=== PATIENT | female | born 1990 | race Caucasian/White ===

== ENCOUNTER 2018-09-20 00:53 | Emergency (ER) | payer BC, MEDICAID ==
[~2018-09-20] VITALS: Ht 165.1 cm; Wt 72.7 kg
[~2018-09-20 00:53] MED LIST: NO HOME MEDS
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
[2018-09-20] MEDS ORDERED: QUET50TA22 PO (01:31)
[2018-09-20] MEDS ORDERED: TOPI50TA24 PO (01:31)
[2018-09-20] MEDS ORDERED: ZIPR20CA12 PO (01:31)
[2018-09-20] MEDS ORDERED: ZIPR80CA10 PO (01:31)
[2018-09-20] MEDS ORDERED: ALBUTEROL (01:31)
[2018-09-20 01:32] LABS: BASOPHILS % (AUTO) 0.5 % (0-1); EOSINOPHILS # (AUTO) 0.1 X10'3 (0-0.9); EOSINOPHILS % (AUTO) 1.4 % (0-6); HEMATOCRIT 42.1 % (35.0-45.0); HEMOGLOBIN 14.4 g/dl (12.0-16.0); LYMPHOCYTES # (AUTO) 2.6 X10'3 (1.1-4.8); LYMPHOCYTES % (AUTO) 30.4 % (21-51); MEAN CORPUSCULAR HEMOGLOBIN 31.3 PG (27.0-31.0); MEAN CORPUSCULAR HGB CONC 34.1 g/dL (33.0-36.5); MEAN CORPUSCULAR VOLUME 91.8 FL (78-98); MEAN PLATELET VOLUME 7.6 FL (7.4-10.4); MONOCYTES # (AUTO) 0.6 X10'3 (0-0.9); MONOCYTES % (AUTO) 7.3 % (2-12); NEUTROPHILS # (AUTO) 5.1 X10'3 (1.8-7.7); NEUTROPHILS % (AUTO) 60.4 % (42-75); PLATELET COUNT 281 X10'3 (140-440); RED BLOOD COUNT 4.59 X10'6 (4.20-5.60); RED CELL DISTRIBUTION WIDTH 12.4 % (11.5-14.5); WHITE BLOOD COUNT 8.5 X10'3 (4.5-11.0)
[2018-09-20 01:45] LABS: PARTIAL THROMBOPLASTIN TIME 30 SECONDS (22-32)
[2018-09-20 01:47] LABS: ALANINE AMINOTRANSFERASE 22 U/L (12-78); ALBUMIN 4.4 G/DL (3.4-5.0); ALBUMIN/GLOBULIN RATIO 1.3 (1.1-1.5); ALKALINE PHOSPHATASE 74 IU/L (46-116); ANION GAP 11 (8-16); ASPARTATE AMINO TRANSFERASE 12 U/L (10-37); BILIRUBIN,TOTAL 0.3 MG/DL (0.1-1.0); BLOOD UREA NITROGEN 16 MG/DL (7-18); BUN/CREATININE RATIO 15.7 (6.6-38.0); CALCIUM 9.5 MG/DL (8.5-10.1); CHLORIDE 108 MMOL/L (99-107); CREATININE 1.02 MG/DL (0.40-0.90); GLUCOSE 104 MG/DL (70-104); POTASSIUM 3.9 MMOL/L (3.5-5.1); SODIUM 140 MMOL/L (135-145); TOTAL CARBON DIOXIDE 21.5 MMOL/L (24-32); TOTAL PROTEIN 7.9 G/DL (6.4-8.2); eGFR 64 ML/MIN
--- NOTE | 2018-09-20 01:49 | NUR ---
Pt resting quietly, respirations normal, no s/s of distress.
[2018-09-20 01:56] LABS: LIPASE 134 U/L (73-393)
[2018-09-20 02:08] LABS: ETHANOL < 0.010 GM/DL (0.0-0.010)
[2018-09-20] MEDS ORDERED: ALBU8HFA PO (03:11)
[2018-09-20] MEDS ORDERED: albuterol 2.5 MG/3 ML nebule NEB PRN (03:15)
--- NOTE | 2018-09-20 03:16 | NUR ---
Pt up to bathroom.
[2018-09-20 03:28] LABS: CLARITY,URINE CLEAR (Clear); COLOR,URINE YELLOW (Yellow); GLUCOSE, URINE NEGATIVE (Neg); KETONES,URINE NEGATIVE (Neg); LEUKOCYTE ESTERASE ,URINE MODERATE (Neg); NITRITES, URINE NEGATIVE (Neg); OCCULT BLOOD,URINE NEGATIVE (Neg); PROTEIN,URINE NEGATIVE (Neg); URINE HCG NEGATIVE (NEG); UROBILINOGEN,URINE 0.2 E.U/dL (0.2-1.0)
[2018-09-20 03:33] LABS: UA COLLECTION TYPE CLN CATCH MIDSTREAM
[2018-09-20 03:35] LABS: BACTERIA,URINE NONE SEEN /HPF (Neg); MUCUS STRANDS NONE SEEN /LPF (Neg); RBC,URINE NONE SEEN /HPF (0-2); SQUAMOUS EPITHELIAL CELL,UR FEW /LPF (FEW); WBC,URINE 20-30 /HPF (0-4)
[2018-09-20 03:40] LABS: URINE AMPHETAMINE SCREEN NEGATIVE (Neg); URINE BARBITUATE SCREEN NEGATIVE (Neg); URINE BENZODIAZEPINES SCREEN NEGATIVE (Neg); URINE CANNABINOID SCREEN NEGATIVE (Neg); URINE COCAINE SCREEN NEGATIVE (Neg); URINE METHADONE SCREEN NEGATIVE (Neg); URINE OPIATE SCREEN NEGATIVE (Neg); URINE PHENCYCLIDINE SCREEN NEGATIVE (Neg)
--- NOTE | 2018-09-20 04:30 | NUR ---
Pt resting quietly, respirations normal, no s/s of distress.
--- NOTE | 2018-09-20 05:38 | NUR ---
Pt resting quietly, respirations normal, no s/s of distress.
[2018-09-20] MEDS ORDERED: cephalexin 500mg capsule PO ONE (06:50)
[2018-09-20] MEDS ORDERED: CEPH250T PO (07:00)
[2018-09-20] MEDS ORDERED: ziprasidone 20mg capsule PO SCH (08:00)
[2018-09-20] MEDS ORDERED: ZIPRASIDONE HCL 80 MG PO SCH (08:00)
[2018-09-20] MEDS: lactobacillus rhamnosus 10,000 MMU CELLS/CAPSULE PO SCH ×2 (08:25→20:28)
[2018-09-20] MEDS: cephalexin 250mg capsule PO SCH ×2 (08:26→20:28)
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
[2018-09-20] MEDS ORDERED: ziprasidone 20mg capsule PO ONE (11:50)
--- NOTE | 2018-09-20 12:21 | NUR ---
PT IS SITTING IN BED, RESPIRATIONS EVEN AND UNLABORED. NO DISTRESS NOTED AT THIS TIME.
[2018-09-20] MEDS: ziprasidone 20mg capsule PO SCH (20:28)
[2018-09-20] MEDS ORDERED: topiramate 100mg tablet PO SCH (21:00)
[2018-09-20] MEDS ORDERED: QUEtiapine 25mg tablet PO SCH (21:00)
[2018-09-21 05:40] VITALS: BP 105/56
--- NOTE | 2018-09-21 07:24 | NUR ---
Patient sleeping on right side. No restlessness/distress observed. Continue to monitor.
[2018-09-21] MEDS: lactobacillus rhamnosus 10,000 MMU CELLS/CAPSULE PO SCH (07:53)
[2018-09-21] MEDS: cephalexin 250mg capsule PO SCH (07:54)
[2018-09-21] MEDS: ziprasidone 20mg capsule PO SCH (07:54)
--- NOTE | 2018-09-21 08:15 | NUR ---
Patient eating breakfast. No distress observed. Patient took her medication. Patient quiet and only answering yes and no questions at this time. Continue to monitor.
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
--- NOTE | 2018-09-21 11:10 | NUR ---
Mother visiting with patient. No distress observed. Patient and mom chatting. Continue to monitor.
[2018-09-22] MEDS ORDERED: TOP100T PO (10:40)
[2018-09-22] MEDS ORDERED: QUET50TA22 PO (10:45)
== END 2018-09-21 12:00 | disposition home or self-care (01) ==
LOC: ER 00:54
DX: F29 Unspecified psychosis not due to a substance or known physiological condition (principal); N39.0 Urinary tract infection, site not specified; F41.9 Anxiety disorder, unspecified; R61 Generalized hyperhidrosis; R79.1 Abnormal coagulation profile; J45.909 Unspecified asthma, uncomplicated; Z79.2 Long term (current) use of antibiotics; Z79.899 Other long term (current) drug therapy
CPT/HCPCS: 36415; 80053; 80305; 80320; 81001; 81025; 83690; 83735; 84443; 85025; 85610; 85730; 87088; 99285

== ENCOUNTER 2018-09-21 10:22 | Inpatient (IN) | payer BC, MEDICAID ==
[~2018-09-21] VITALS: Ht 165.1 cm; Wt 69.9 kg
[~2018-09-21 10:22] MED LIST changes: +ALBU8HFA PO; +CEPH250T PO; +QUET50TA22 PO; +TOPI50TA24 PO; +ZIPR20CA12 PO
[2018-09-21] MEDS ORDERED: mag hydrox/Alum hydrox/simeth 30ml oral suspension PO PRN (10:50)
[2018-09-21] MEDS ORDERED: magnesium hydroxide 30ml (MOM) UD suspension PO PRN (10:50)
[2018-09-21] MEDS ORDERED: tuberculin, purif. prot. deriv. 5 units/0.1ml ID ONE (10:50)
[2018-09-21] MEDS ORDERED: acetaminophen 325mg tablet PO PRN ×2 (10:50)
[2018-09-21] MEDS ORDERED: albuterol 2.5 MG/3 ML nebule NEB PRN (12:00)
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
--- NOTE | 2018-09-21 12:05 | NUR ---
Pt.'s vitals upon admission are BP 106/78, HR 81, Temp 98.2, SPO2 95%, Resp 16. Pain 0/10
[2018-09-21] MEDS: cephalexin 500mg capsule PO SCH ×2 (12:14→20:47)
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
[2018-09-21] MEDS: ALBUTEROL INHALER TP PRN ×2 (15:25→21:44)
--- NOTE | 2018-09-21 16:57 | NUR ---
Pt. refused PPD
[2018-09-21 19:13] VITALS: BP 127/83
[2018-09-21 19:48] VITALS: BP 127/83
[2018-09-21] MEDS: ziprasidone 20mg capsule PO SCH (20:45)
[2018-09-21] MEDS: QUEtiapine 25mg tablet PO SCH (20:47)
[2018-09-21] MEDS: topiramate 100mg tablet PO SCH (20:48)
[2018-09-21] MEDS: lactobacillus rhamnosus 10,000 MMU CELLS/CAPSULE PO SCH (20:48)
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
[2018-09-22 07:50] LABS: HEMOGLOBIN A1C 5.3 % (4.5-6.2)
[2018-09-22] MEDS: cephalexin 500mg capsule PO SCH ×2 (07:57→20:57)
[2018-09-22] MEDS: lactobacillus rhamnosus 10,000 MMU CELLS/CAPSULE PO SCH ×2 (07:57→20:57)
[2018-09-22] MEDS: ziprasidone 20mg capsule PO SCH ×2 (07:57→20:57)
[2018-09-22 08:00] VITALS: BP 111/63
[2018-09-22 08:11] LABS: CHOLESTEROL 114 MG/DL (0-200); HDL CHOLESTEROL 56 MG/DL (35-60); LDL CHOLESTEROL 48 MG/DL (50-100); TRIGLYCERIDES 64 MG/DL (20-135)
[2018-09-22] MEDS ORDERED: TOP100T PO (10:40)
[2018-09-22] MEDS ORDERED: QUET50TA22 PO (10:45)
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
[2018-09-22 20:00] VITALS: BP 126/66
[2018-09-22] MEDS: topiramate 100mg tablet PO SCH (20:57)
[2018-09-22] MEDS: QUEtiapine 25mg tablet PO SCH (20:57)
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
[2018-09-23] MEDS: hydrOXYzine 25 MG tablet PO PRN ×2 (00:19→22:18)
[2018-09-23] MEDS: ALBUTEROL INHALER TP PRN ×2 (00:24→22:18)
[2018-09-23 08:00] VITALS: BP 113/52
[2018-09-23] MEDS: lactobacillus rhamnosus 10,000 MMU CELLS/CAPSULE PO SCH ×2 (08:43→20:04)
[2018-09-23] MEDS: ziprasidone 20mg capsule PO SCH ×2 (08:43→20:09)
[2018-09-23] MEDS: cephalexin 500mg capsule PO SCH ×2 (08:43→20:04)
[2018-09-23] MEDS ORDERED: risperiDONE 2mg tablet PO ONE (12:00)
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
[2018-09-23 19:50] VITALS: BP 115/59
[2018-09-23] MEDS: topiramate 100mg tablet PO SCH (20:04)
[2018-09-23] MEDS: risperiDONE 2mg tablet PO SCH (20:05)
[2018-09-23] MEDS: QUEtiapine 25mg tablet PO SCH (20:06)
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
[2018-09-24 07:40] VITALS: BP 107/50
[2018-09-24] MEDS: cephalexin 500mg capsule PO SCH ×2 (07:47→21:12)
[2018-09-24] MEDS: lactobacillus rhamnosus 10,000 MMU CELLS/CAPSULE PO SCH ×2 (07:47→21:13)
[2018-09-24] MEDS: risperiDONE 2mg tablet PO SCH ×2 (07:47→21:13)
[2018-09-24] MEDS: ziprasidone 20mg capsule PO SCH ×2 (07:47→21:12)
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
[2018-09-24 20:00] VITALS: BP 125/69
[2018-09-24] MEDS: ALBUTEROL INHALER TP PRN (21:11)
[2018-09-24] MEDS: QUEtiapine 25mg tablet PO SCH (21:12)
[2018-09-24] MEDS: topiramate 100mg tablet PO SCH (21:12)
[2018-09-24] MEDS: hydrOXYzine 25 MG tablet PO PRN (21:48)
--- NOTE | 2018-09-25 01:00 | NUR ---
Pt restless and unable to fall asleep. Called Dr. Murillo - received order for Temazepam 30mg once. Administered with effect.
[2018-09-25] MEDS ORDERED: temazepam 15mg capsule PO ONE (01:08)
[2018-09-25] MEDS: LORazepam 1 MG tablet PO PRN ×2 (01:14→23:20)
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
[2018-09-25 07:39] VITALS: BP 112/65
[2018-09-25] MEDS: lactobacillus rhamnosus 10,000 MMU CELLS/CAPSULE PO SCH ×2 (09:02→20:45)
[2018-09-25] MEDS: risperiDONE 2mg tablet PO SCH (09:02)
[2018-09-25] MEDS: ziprasidone 20mg capsule PO SCH ×2 (09:02→20:45)
[2018-09-25] MEDS: cephalexin 500mg capsule PO SCH ×2 (09:02→20:46)
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
[2018-09-25 19:21] VITALS: BP 115/66
[2018-09-25] MEDS ORDERED: polyethylene glycol 3350 17gm powd pack PO PRN (20:00)
[2018-09-25] MEDS: topiramate 100mg tablet PO SCH (20:46)
[2018-09-25] MEDS ORDERED: risperiDONE 0.5mg tablet PO SCH (21:00)
[2018-09-25] MEDS ORDERED: quetiapine 100mg tablet PO SCH (21:00)
[2018-09-25] MEDS ORDERED: temazepam 15mg capsule PO PRN (23:30)
[2018-09-25] MEDS: ALBUTEROL INHALER TP PRN (23:43)
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
[2018-09-26 07:39] VITALS: BP 102/57
[2018-09-26] MEDS: cephalexin 500mg capsule PO SCH ×2 (08:06→21:02)
[2018-09-26] MEDS: ziprasidone 20mg capsule PO SCH (08:06)
[2018-09-26] MEDS: risperiDONE 0.5mg tablet PO SCH ×2 (08:06→21:02)
[2018-09-26] MEDS: lactobacillus rhamnosus 10,000 MMU CELLS/CAPSULE PO SCH ×2 (08:06→21:02)
--- NOTE | 2018-09-26 14:46 | NUR ---
Eating well, meeting nutrition needs. Patient documented with constipation, no BM for 5 days since 09/21, noted that she is receiving milk of magnsouleymane ponce, last given 09/23. Called unit to discuss patient's constipation, no answer, will attempt again. Patient my need additional bowel care if continues with constipation. Recommend: 1. continue regular diet 2. weekly wts Addendum: 09/26/18 at [address] Amended: Links added.
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
[2018-09-26 20:08] VITALS: BP 107/67
[2018-09-26] MEDS ORDERED: LORazepam 1 MG tablet PO PRN ×2 (20:50)
[2018-09-26] MEDS: topiramate 100mg tablet PO SCH (21:03)
[2018-09-26] MEDS: quetiapine 100mg tablet PO SCH (21:03)
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
[2018-09-27 07:28] VITALS: BP 107/66
[2018-09-27] MEDS: risperiDONE 0.5mg tablet PO SCH ×2 (07:53→20:43)
[2018-09-27] MEDS: ziprasidone 20mg capsule PO SCH ×2 (07:53→20:43)
[2018-09-27] MEDS: cephalexin 500mg capsule PO SCH (07:53)
[2018-09-27] MEDS: lactobacillus rhamnosus 10,000 MMU CELLS/CAPSULE PO SCH ×2 (07:54→20:42)
--- NOTE | 2018-09-27 12:26 | NUR ---
F/u: Pt BM 09/26 and constipation currently resolving receiving bowel care per RN. No nutrition concerns at this time. Recommend: 1. continue regular diet 2. weekly wts Addendum: 09/27/18 at [address] Amended: Links added.
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
[2018-09-27 19:33] VITALS: BP 119/80
[2018-09-27] MEDS: quetiapine 100mg tablet PO SCH ×2 (20:43→22:21)
[2018-09-27] MEDS: topiramate 100mg tablet PO SCH (20:43)
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
[2018-09-28 07:52] VITALS: BP 116/58
[2018-09-28] MEDS: lactobacillus rhamnosus 10,000 MMU CELLS/CAPSULE PO SCH ×2 (08:15→20:27)
[2018-09-28] MEDS: ziprasidone 20mg capsule PO SCH (08:15)
[2018-09-28] MEDS: risperiDONE 0.5mg tablet PO SCH ×2 (08:15→20:27)
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
[2018-09-28 20:13] VITALS: BP 105/64
[2018-09-28] MEDS: topiramate 100mg tablet PO SCH (20:27)
[2018-09-28] MEDS: quetiapine 100mg tablet PO SCH (20:27)
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
[2018-09-29] MEDS: risperiDONE 0.5mg tablet PO SCH ×2 (07:37→20:26)
[2018-09-29] MEDS: lactobacillus rhamnosus 10,000 MMU CELLS/CAPSULE PO SCH ×2 (07:37→20:26)
[2018-09-29] MEDS ORDERED: ziprasidone 20mg capsule PO SCH ×2 (08:00→20:00)
[2018-09-29 08:46] VITALS: BP 114/50
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
[2018-09-29 19:41] VITALS: BP 113/68
[2018-09-29] MEDS: quetiapine 100mg tablet PO SCH (20:26)
[2018-09-29] MEDS: topiramate 100mg tablet PO SCH (20:26)
[2018-09-29] MEDS: temazepam 15mg capsule PO PRN (21:57)
[2018-09-29] MEDS: ALBUTEROL INHALER TP PRN (21:57)
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
[2018-09-30 08:00] VITALS: BP 118/64
[2018-09-30] MEDS: risperiDONE 0.5mg tablet PO SCH ×2 (08:12→20:20)
[2018-09-30] MEDS: lactobacillus rhamnosus 10,000 MMU CELLS/CAPSULE PO SCH ×2 (08:12→20:19)
[2018-09-30] MEDS: ziprasidone 20mg capsule PO SCH (08:12)
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
[2018-09-30 19:47] VITALS: BP 133/70
[2018-09-30] MEDS: quetiapine 100mg tablet PO SCH (20:18)
[2018-09-30] MEDS: topiramate 100mg tablet PO SCH (20:19)
[2018-09-30] MEDS ORDERED: ondansetron 4mg rapidly disintigrating tab PO ONE (21:00)
[2018-09-30] MEDS: loperamide 2mg capsule PO PRN (21:24)
[2018-09-30] MEDS: temazepam 15mg capsule PO PRN (22:44)
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
[2018-10-01 07:00] VITALS: BP 102/51
[2018-10-01] MEDS ORDERED: risperiDONE 0.5mg tablet PO SCH (08:00)
[2018-10-01] MEDS: ziprasidone 20mg capsule PO SCH (08:50)
[2018-10-01] MEDS: lactobacillus rhamnosus 10,000 MMU CELLS/CAPSULE PO SCH ×2 (08:51→21:32)
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
[2018-10-01 20:00] VITALS: BP 105/72
[2018-10-01] MEDS: topiramate 100mg tablet PO SCH (21:32)
[2018-10-01] MEDS: quetiapine 100mg tablet PO SCH (21:32)
[2018-10-01] MEDS: risperiDONE 0.5mg tablet PO SCH (21:32)
[2018-10-01] MEDS: temazepam 15mg capsule PO PRN (21:38)
[2018-10-01] MEDS: loperamide 2mg capsule PO PRN (21:38)
--- NOTE | 2018-10-02 02:00 | NUR ---
Nursing Note: Pt. awoke with another episode of vomiting as she had, had the night before. She requested to take a shower and was able to do so independently. V/S obtained following shower and were WNL. Pt. denies any further nausea and reports fatigue, she requests tea and returns to bed. Will continue to monitor.
[2018-10-02 02:25] VITALS: BP 126/74
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
[2018-10-02 08:00] VITALS: BP 102/52
[2018-10-02] MEDS: lactobacillus rhamnosus 10,000 MMU CELLS/CAPSULE PO SCH ×2 (08:29→20:30)
[2018-10-02] MEDS: risperiDONE 0.5mg tablet PO SCH ×2 (08:29→20:30)
[2018-10-02] MEDS: ziprasidone 20mg capsule PO SCH (08:30)
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
[2018-10-02 19:49] VITALS: BP 102/69
[2018-10-02] MEDS: topiramate 100mg tablet PO SCH (20:30)
[2018-10-02] MEDS: quetiapine 100mg tablet PO SCH (20:30)
[2018-10-02] MEDS: temazepam 15mg capsule PO PRN (22:25)
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
[2018-10-03 07:33] VITALS: BP 94/62
[2018-10-03] MEDS: lactobacillus rhamnosus 10,000 MMU CELLS/CAPSULE PO SCH ×2 (08:21→20:29)
[2018-10-03] MEDS: risperiDONE 0.5mg tablet PO SCH ×2 (08:21→20:30)
[2018-10-03] MEDS: topiramate 25mg tablet PO SCH (08:22)
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
[2018-10-03 19:54] VITALS: BP 106/56
[2018-10-03] MEDS: quetiapine 100mg tablet PO SCH (20:30)
[2018-10-03] MEDS: topiramate 100mg tablet PO SCH (20:30)
[2018-10-03] MEDS: temazepam 15mg capsule PO PRN (22:20)
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
[2018-10-04] MEDS: quetiapine 100mg tablet PO SCH (02:42)
[2018-10-04 07:34] VITALS: BP 99/54
[2018-10-04] MEDS: topiramate 25mg tablet PO SCH (08:22)
[2018-10-04] MEDS: lactobacillus rhamnosus 10,000 MMU CELLS/CAPSULE PO SCH (08:22)
[2018-10-04] MEDS: risperiDONE 0.5mg tablet PO SCH (08:23)
[2018-10-04] MEDS ORDERED: RISP0.5T3 PO ×2 (14:03)
[2018-10-04] MEDS ORDERED: QUET100T33 PO (14:03)
[2018-10-04] MEDS ORDERED: TOP25T PO (14:03)
[2018-10-04] MEDS ORDERED: TOP100T PO (14:03)
--- NOTE | 2018-10-04 14:35 | NUR ---
DISCHARGE NOTE Pt discharged home with her mother after a medication adjustment. All personal belongings inventoried and signed off w/AUGUST Aggarwal. Pt declined smoking cessation. Resources provided for community assistance. Pt denies SI/HI. Prescriptions handed to her and education provided for her to go to the pharmacy and to get her Rx's filled on her way home. Pt left smiling.
== END 2018-10-04 14:35 | disposition home or self-care (01) | DRG 885 ==
LOC: ADULT MH 10:22
PROVIDERS: ADMIT Psychiatry & Neurology Psychiatry; ATTEND Psychiatry & Neurology Psychiatry
DX: F29 Unspecified psychosis not due to a substance or known physiological condition (principal); N39.0 Urinary tract infection, site not specified; F84.5 Asperger's syndrome; J45.909 Unspecified asthma, uncomplicated; Z91.19 Patient's noncompliance with other medical treatment and regimen; Z79.899 Other long term (current) drug therapy
CPT/HCPCS: 36415; 80061; 83036; 87081; 94640; 94760; 99285; Z7610

== ENCOUNTER 2018-11-10 13:32 | Emergency (ER) | payer BC, MEDICAID ==
[~2018-11-10] VITALS: Ht 162.6 cm; Wt 59.0 kg
[~2018-11-10 13:32] MED LIST changes: -CEPH250T PO; -NO HOME MEDS; +QUET100T33 PO; -QUET50TA22 PO; +RISP0.5T3 PO; +TOP100T PO; +TOP25T PO; -TOPI50TA24 PO; -ZIPR20CA12 PO
[2018-11-10 14:08] LABS: BASOPHILS % (AUTO) 0.5 % (0-1); EOSINOPHILS # (AUTO) 0.2 X10'3 (0-0.9); EOSINOPHILS % (AUTO) 2.8 % (0-6); HEMATOCRIT 40.6 % (35.0-45.0); HEMOGLOBIN 13.9 g/dl (12.0-16.0); LYMPHOCYTES # (AUTO) 1.7 X10'3 (1.1-4.8); LYMPHOCYTES % (AUTO) 29.8 % (21-51); MEAN CORPUSCULAR HEMOGLOBIN 31.8 PG (27.0-31.0); MEAN CORPUSCULAR HGB CONC 34.3 g/dL (33.0-36.5); MEAN CORPUSCULAR VOLUME 92.7 FL (78-98); MEAN PLATELET VOLUME 7.6 FL (7.4-10.4); MONOCYTES # (AUTO) 0.5 X10'3 (0-0.9); NEUTROPHILS # (AUTO) 3.4 X10'3 (1.8-7.7); NEUTROPHILS % (AUTO) 58.9 % (42-75); PLATELET COUNT 257 X10'3 (140-440); RED BLOOD COUNT 4.38 X10'6 (4.20-5.60); RED CELL DISTRIBUTION WIDTH 12.4 % (11.5-14.5); WHITE BLOOD COUNT 5.8 X10'3 (4.5-11.0)
[2018-11-10 14:14] LABS: ALANINE AMINOTRANSFERASE 24 U/L (12-78); ALBUMIN 4.2 G/DL (3.4-5.0); ALBUMIN/GLOBULIN RATIO 1.2 (1.1-1.5); ALKALINE PHOSPHATASE 82 IU/L (46-116); ANION GAP 13 (8-16); ASPARTATE AMINO TRANSFERASE 15 U/L (10-37); BILIRUBIN,TOTAL 0.4 MG/DL (0.1-1.0); BLOOD UREA NITROGEN 9 MG/DL (7-18); BUN/CREATININE RATIO 9.6 (6.6-38.0); CALCIUM 9.1 MG/DL (8.5-10.1); CHLORIDE 106 MMOL/L (99-107); CREATININE 0.94 MG/DL (0.40-0.90); ETHANOL < 0.010 GM/DL (0.0-0.010); GLUCOSE 106 MG/DL (70-104); POTASSIUM 3.7 MMOL/L (3.5-5.1); SODIUM 142 MMOL/L (135-145); TOTAL CARBON DIOXIDE 22.8 MMOL/L (24-32); TOTAL PROTEIN 7.6 G/DL (6.4-8.2); eGFR 70 ML/MIN
--- NOTE | 2018-11-10 14:31 | NUR ---
called and gave report to overflow.
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
[2018-11-10 15:29] LABS: URINE HCG NEGATIVE (NEG)
[2018-11-10 15:35] LABS: URINE AMPHETAMINE SCREEN NEGATIVE (Neg); URINE BARBITUATE SCREEN NEGATIVE (Neg); URINE BENZODIAZEPINES SCREEN NEGATIVE (Neg); URINE CANNABINOID SCREEN NEGATIVE (Neg); URINE COCAINE SCREEN NEGATIVE (Neg); URINE METHADONE SCREEN NEGATIVE (Neg); URINE OPIATE SCREEN NEGATIVE (Neg); URINE PHENCYCLIDINE SCREEN NEGATIVE (Neg)
[2018-11-10] MEDS ORDERED: QUET-1 PO (15:35)
[2018-11-10] MEDS ORDERED: TOPI25TA15 PO (15:40)
[2018-11-10] MEDS ORDERED: RISP2TAB3 PO ×2 (15:40→15:44)
[2018-11-10] MEDS ORDERED: TOPI50TA PO (15:40)
[2018-11-10] MEDS ORDERED: TOP100T PO (15:40)
[2018-11-10] MEDS ORDERED: RISP1TAB3 PO (15:40)
[2018-11-10] MEDS ORDERED: albuterol 2.5 MG/3 ML nebule NEB PRN (16:10)
[2018-11-10] MEDS ORDERED: RISP1TAB13 PO (16:59)
--- NOTE | 2018-11-10 17:00 | NUR ---
Pt resting quietly in bed. Pt called out once because she was hungry and once because she was cold. As soon as staff addressed concerns, pt laying quietly in bed.
--- NOTE | 2018-11-10 19:03 | NUR ---
One to one with the patient to assess severity of depressive symptoms and self harm risk. She is resting quietly on her bed after eating approximately 70% of her dinner. During the evening assessment her speech was monotone and her affect was very flat. She gave minimal eye contact. She stated that she has been feeling very depressed. When asked why she was here she stated, "My parents said I was hurting them but they were hurting me...They don't like me" She appears at times to be internally preoccupied. When asked if she heard voices she stated that she 3 different voices and they tell her "That my parents hate me" She stated that she saw things that other people did not see but when asked to give an example she only stated, "just weird things. I don't really remember" She reports her energy level is low. She stated that she does not want to live with her family but wants to be and have a family. When asked about suicidal thinking she stated that at times she feels she should not be "around in life anymore"
[2018-11-10] MEDS: quetiapine 100mg tablet PO SCH (20:06)
[2018-11-10] MEDS: topiramate 100mg tablet PO SCH (20:06)
[2018-11-10] MEDS: risperiDONE 0.5mg tablet PO SCH (20:06)
[2018-11-10] MEDS: risperiDONE 2mg tablet PO SCH (20:06)
--- NOTE | 2018-11-10 20:27 | NUR ---
The patient is actively responding to internal stimuli and laughing and at other times is distress and moaining loudly
[2018-11-10] MEDS ORDERED: risperiDONE 2mg tablet PO SCH (21:00)
--- NOTE | 2018-11-10 21:27 | NUR ---
The patient now appears to be asleep
--- NOTE | 2018-11-10 23:43 | NUR ---
The patient is awake off and on. She continues to appear to be distracted by internal stimuli. She declines offer of medication. She did accept a snack
--- NOTE | 2018-11-11 03:00 | NUR ---
The patient appears to be sleeping
--- NOTE | 2018-11-11 05:02 | NUR ---
The patient appears to be sleeping
--- NOTE | 2018-11-11 07:00 | NUR ---
Received pt asleep in bed without distress noted.
[2018-11-11] MEDS ORDERED: risperiDONE 0.5mg tablet PO SCH (08:00)
[2018-11-11] MEDS ORDERED: topiramate 25mg tablet PO SCH (08:00)
--- NOTE | 2018-11-11 09:00 | NUR ---
Pt awoke for breakfast and she took am meds without incident. Pt affect remains flat for the most part, but she did smile once which was a change from yesterday when she didn't smile at all.
--- NOTE | 2018-11-11 11:00 | NUR ---
Pt has been sitting up in bed coloring in a coloring book and looking at a magazine and tearing out pictures. Mom just arrived to visit.
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
--- NOTE | 2018-11-11 15:00 | NUR ---
pt resting quietly in bed drawing in coloring book.
--- NOTE | 2018-11-11 16:57 | NUR ---
Pt sitting up in bed quietly looking at the ground. Pt offers up no complaints.
[2018-11-11] MEDS: topiramate 100mg tablet PO SCH (20:49)
[2018-11-11] MEDS: risperiDONE 2mg tablet PO SCH (20:50)
[2018-11-11] MEDS: quetiapine 100mg tablet PO SCH (20:51)
[2018-11-11] MEDS: risperiDONE 0.5mg tablet PO SCH (20:51)
--- NOTE | 2018-11-11 20:54 | NUR ---
relieving RN for break, pt is resting quietly, calm and cooperative, compliant with taking meds, asking for breathing tx, RT paged
[2018-11-11 23:22] VITALS: BP 114/71
== END 2018-11-11 23:26 ==
LOC: ER 13:34
DX: R45.850 Homicidal ideations (principal); J45.909 Unspecified asthma, uncomplicated; F29 Unspecified psychosis not due to a substance or known physiological condition; R06.03 Acute respiratory distress; Z79.899 Other long term (current) drug therapy
CPT/HCPCS: 36415; 80053; 80305; 80320; 81025; 85025; 94640; 99285

== ENCOUNTER 2018-11-11 19:10 | Inpatient (IN) | payer BC, MEDICAID ==
[~2018-11-11] VITALS: Ht 162.6 cm; Wt 79.1 kg
[~2018-11-11 19:10] MED LIST changes: +QUET-1 PO; -QUET100T33 PO; -RISP0.5T3 PO; +RISP1TAB13 PO; +RISP1TAB3 PO; -TOP25T PO; +TOPI25TA15 PO
[2018-11-11 23:29] VITALS: BP 111/78
[2018-11-11] MEDS ORDERED: magnesium hydroxide 30ml (MOM) UD suspension PO PRN (23:35)
[2018-11-11] MEDS ORDERED: mag hydrox/Alum hydrox/simeth 30ml oral suspension PO PRN (23:35)
[2018-11-11] MEDS ORDERED: acetaminophen 325mg tablet PO PRN (23:35)
[2018-11-11] MEDS ORDERED: loperamide 2mg capsule PO PRN (23:40)
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
[2018-11-12 07:00] VITALS: BP 106/71
[2018-11-12] MEDS: topiramate 25mg tablet PO SCH (07:34)
[2018-11-12] MEDS: risperiDONE 0.5mg tablet PO SCH ×2 (07:34→20:34)
[2018-11-12 08:36] LABS: CHOL/HDL RATIO 2.2 (0.00-4.99); CHOLESTEROL 122 MG/DL (0-200); HDL CHOLESTEROL 55 MG/DL (35-60); LDL CHOLESTEROL 54 MG/DL (50-100); TRIGLYCERIDES 114 MG/DL (20-135)
[2018-11-12 08:37] LABS: HEMOGLOBIN A1C 4.9 % (4.5-6.2)
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
[2018-11-12 19:00] VITALS: BP 114/73
[2018-11-12] MEDS: LORazepam 1 MG tablet PO PRN (19:00)
[2018-11-12] MEDS: topiramate 100mg tablet PO SCH (20:34)
[2018-11-12] MEDS: quetiapine 100mg tablet PO SCH (20:35)
[2018-11-12] MEDS: risperiDONE 2mg tablet PO SCH (20:35)
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
[2018-11-13] MEDS: risperiDONE 0.5mg tablet PO SCH ×2 (07:56→20:18)
[2018-11-13] MEDS: topiramate 25mg tablet PO SCH (07:56)
[2018-11-13 08:00] VITALS: BP 94/60
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
[2018-11-13 20:08] VITALS: BP 118/78
[2018-11-13] MEDS: LORazepam 1 MG tablet PO PRN (20:18)
[2018-11-13] MEDS: topiramate 100mg tablet PO SCH (20:18)
[2018-11-13] MEDS: risperiDONE 2mg tablet PO SCH (20:18)
[2018-11-13] MEDS: quetiapine 100mg tablet PO SCH (20:18)
[2018-11-14 07:47] VITALS: BP 105/57
[2018-11-14] MEDS: topiramate 25mg tablet PO SCH (08:15)
[2018-11-14] MEDS: risperiDONE 0.5mg tablet PO SCH ×2 (08:15→20:13)
[2018-11-14] MEDS: albuterol 2.5 MG/3 ML nebule NEB PRN (11:22)
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
[2018-11-14 19:29] VITALS: BP 116/70
[2018-11-14] MEDS: risperiDONE 2mg tablet PO SCH (20:13)
[2018-11-14] MEDS: LORazepam 1 MG tablet PO PRN (20:13)
[2018-11-14] MEDS: topiramate 100mg tablet PO SCH (20:13)
[2018-11-14] MEDS: quetiapine 100mg tablet PO SCH (20:13)
[2018-11-14] MEDS: acetaminophen 325mg tablet PO PRN (20:14)
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
[2018-11-15 07:30] VITALS: BP 94/51
[2018-11-15] MEDS: topiramate 25mg tablet PO SCH (08:23)
[2018-11-15] MEDS: risperiDONE 0.5mg tablet PO SCH ×2 (08:23→20:27)
[2018-11-15] MEDS: acetaminophen 325mg tablet PO PRN (08:48)
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
[2018-11-15 19:32] VITALS: BP 120/66
[2018-11-15] MEDS: topiramate 100mg tablet PO SCH (20:26)
[2018-11-15] MEDS: risperiDONE 2mg tablet PO SCH (20:27)
[2018-11-15] MEDS: quetiapine 100mg tablet PO SCH (20:27)
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
[2018-11-15] MEDS: albuterol 2.5 MG/3 ML nebule NEB PRN (22:32)
[2018-11-16 08:00] VITALS: BP 114/58
[2018-11-16] MEDS: topiramate 25mg tablet PO SCH (08:52)
[2018-11-16] MEDS: risperiDONE 0.5mg tablet PO SCH ×2 (08:53→20:29)
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
[2018-11-16 19:47] VITALS: BP 117/72
[2018-11-16] MEDS: risperiDONE 2mg tablet PO SCH (20:29)
[2018-11-16] MEDS: topiramate 100mg tablet PO SCH (20:29)
[2018-11-16] MEDS: quetiapine 100mg tablet PO SCH (20:29)
[2018-11-16] MEDS: albuterol 2.5 MG/3 ML nebule NEB PRN (20:48)
[2018-11-16] MEDS: LORazepam 1 MG tablet PO PRN (22:19)
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
[2018-11-17] MEDS: risperiDONE 0.5mg tablet PO SCH (08:20)
[2018-11-17] MEDS: topiramate 25mg tablet PO SCH (08:20)
[2018-11-17] MEDS: acetaminophen 325mg tablet PO PRN (08:33)
[2018-11-17 08:41] VITALS: BP 104/53
--- NOTE | 2018-11-17 09:27 | NUR ---
Eating well, average PO intake 75-100% of regular meals. Last BM 11/17. No nutrition problem. Will continue to follow. Recommend: 1. continue regular diet 2. bowel care as needed 3. weekly weights Addendum: 11/17/18 at [address] Amended: Links added.
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
[2018-11-17 19:50] VITALS: BP 121/75
[2018-11-17] MEDS: risperiDONE 2mg tablet PO SCH (20:46)
[2018-11-17] MEDS: quetiapine 100mg tablet PO SCH (20:46)
[2018-11-17] MEDS: topiramate 100mg tablet PO SCH (20:47)
[2018-11-17] MEDS ORDERED: OLANZapine 2.5MG tablet PO SCH (21:00)
[2018-11-17] MEDS: albuterol 2.5 MG/3 ML nebule NEB PRN (21:27)
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
[2018-11-18 08:00] VITALS: BP 113/57
[2018-11-18] MEDS: topiramate 25mg tablet PO SCH (08:24)
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
[2018-11-18 19:00] VITALS: BP 124/74
[2018-11-18] MEDS: quetiapine 100mg tablet PO SCH (21:03)
[2018-11-18] MEDS: risperiDONE 2mg tablet PO SCH (21:03)
[2018-11-18] MEDS: topiramate 100mg tablet PO SCH (21:03)
[2018-11-18] MEDS: OLANZapine 2.5MG tablet PO SCH (21:03)
[2018-11-18] MEDS: albuterol 2.5 MG/3 ML nebule NEB PRN (22:47)
[2018-11-18] MEDS: LORazepam 1 MG tablet PO PRN (23:57)
[2018-11-19] MEDS: acetaminophen 325mg tablet PO PRN (00:48)
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
[2018-11-19 08:00] VITALS: BP 98/49
[2018-11-19] MEDS: lamoTRIgine 25mg tablet PO SCH (08:02)
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
[2018-11-19 19:17] VITALS: BP 112/77
[2018-11-19] MEDS: quetiapine 100mg tablet PO SCH (21:38)
[2018-11-19] MEDS: LORazepam 1 MG tablet PO PRN (21:38)
[2018-11-19] MEDS: topiramate 25mg tablet PO SCH (21:38)
[2018-11-19] MEDS: OLANZapine 2.5MG tablet PO SCH (21:38)
[2018-11-19] MEDS: albuterol 2.5 MG/3 ML nebule NEB PRN (23:06)
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
[2018-11-20 08:00] VITALS: BP 114/60
[2018-11-20] MEDS: lamoTRIgine 25mg tablet PO SCH (08:27)
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
[2018-11-20 19:00] VITALS: BP 109/61
[2018-11-20] MEDS ORDERED: OLANZAPINE 5 MG TABLET PO SCH (21:00)
[2018-11-20] MEDS: QUEtiapine 25mg tablet PO SCH (21:03)
[2018-11-20] MEDS: topiramate 25mg tablet PO SCH (21:04)
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
[2018-11-21] MEDS: lamoTRIgine 25mg tablet PO SCH (07:17)
[2018-11-21 07:37] VITALS: BP 109/56
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
[2018-11-21 20:00] VITALS: BP 111/51
[2018-11-21] MEDS: OLANZAPINE 5 MG TABLET PO SCH (20:47)
[2018-11-21] MEDS: topiramate 25mg tablet PO SCH (20:48)
[2018-11-21] MEDS: QUEtiapine 25mg tablet PO SCH (20:49)
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
[2018-11-22] MEDS: lamoTRIgine 25mg tablet PO SCH (07:42)
[2018-11-22] MEDS: OLANZapine 2.5MG tablet PO SCH (07:42)
[2018-11-22 08:00] VITALS: BP 112/53
[2018-11-22] MEDS: LORazepam 1 MG tablet PO PRN ×2 (10:42→23:36)
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
[2018-11-22] MEDS: OLANZAPINE 5 MG TABLET PO SCH (20:15)
[2018-11-22] MEDS: QUEtiapine 25mg tablet PO SCH (20:15)
[2018-11-22] MEDS: topiramate 25mg tablet PO SCH (20:16)
[2018-11-22 20:58] VITALS: BP 122/76
[2018-11-22] MEDS: albuterol 2.5 MG/3 ML nebule NEB PRN (21:59)
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
[2018-11-23] MEDS: OLANZapine 2.5MG tablet PO SCH (07:56)
[2018-11-23] MEDS: lamoTRIgine 25mg tablet PO SCH (07:56)
[2018-11-23 08:00] VITALS: BP 104/57
--- NOTE | 2018-11-23 13:04 | NUR ---
Reassessment: Patient's PO intake now fluctuating with 75-100% with refusal of lunch and dinner 11/22 and breakfast 11/21. Likely pt still overall meeting nutrient needs given good PO intake when eating. LBM 11/19 with MoM PRN last given 11/13. Per physical assessment pt resistive to care, refusing to say when her LBM was, and refusing MoM. Will continue to follow and make recommendations as appropriate. Recommend: 1. continue regular diet 2. monitor need for ONS 3. bowel care as needed; monitor need for additional 4. weekly weights Addendum: 11/23/18 at [address] Amended: Links added.
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
[2018-11-23 20:00] VITALS: BP 124/75
[2018-11-23] MEDS: OLANZAPINE 5 MG TABLET PO SCH (21:16)
[2018-11-23] MEDS: QUEtiapine 25mg tablet PO SCH (21:17)
[2018-11-23] MEDS: topiramate 25mg tablet PO SCH (21:17)
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
[2018-11-24 08:00] VITALS: BP 99/58
[2018-11-24] MEDS: lamoTRIgine 25mg tablet PO SCH (09:01)
[2018-11-24] MEDS: topiramate 25mg tablet PO SCH ×2 (09:01→20:36)
[2018-11-24] MEDS: OLANZapine 2.5MG tablet PO SCH (09:01)
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
[2018-11-24 20:00] VITALS: BP 117/69
[2018-11-24] MEDS: OLANZAPINE 5 MG TABLET PO SCH (20:35)
[2018-11-24] MEDS: QUEtiapine 25mg tablet PO SCH (20:36)
[2018-11-24] MEDS: LORazepam 1 MG tablet PO PRN (22:27)
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
[2018-11-25] MEDS: topiramate 25mg tablet PO SCH ×2 (07:48→19:57)
[2018-11-25] MEDS: lamoTRIgine 25mg tablet PO SCH (07:48)
[2018-11-25] MEDS: OLANZapine 2.5MG tablet PO SCH ×2 (07:49→13:14)
[2018-11-25 08:00] VITALS: BP 111/52
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
[2018-11-25] MEDS: QUEtiapine 25mg tablet PO SCH (19:57)
[2018-11-25] MEDS: OLANZAPINE 5 MG TABLET PO SCH (19:57)
[2018-11-25 20:00] VITALS: BP 114/73
[2018-11-25] MEDS: LORazepam 1 MG tablet PO PRN (21:55)
[2018-11-25] MEDS: albuterol 2.5 MG/3 ML nebule NEB PRN (22:20)
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
[2018-11-26 07:30] VITALS: BP 97/64
[2018-11-26] MEDS: OLANZapine 2.5MG tablet PO SCH ×2 (08:07→12:01)
[2018-11-26] MEDS: topiramate 25mg tablet PO SCH ×2 (08:07→20:17)
[2018-11-26] MEDS: lamoTRIgine 25mg tablet PO SCH (08:08)
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
[2018-11-26 19:42] VITALS: BP 103/55
[2018-11-26] MEDS: OLANZAPINE 5 MG TABLET PO SCH (20:16)
[2018-11-26] MEDS: QUEtiapine 25mg tablet PO SCH (20:17)
[2018-11-26] MEDS: LORazepam 1 MG tablet PO PRN (22:33)
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
[2018-11-27] MEDS: lamoTRIgine 25mg tablet PO SCH (07:59)
[2018-11-27] MEDS: topiramate 25mg tablet PO SCH ×2 (07:59→20:27)
[2018-11-27] MEDS: OLANZapine 2.5MG tablet PO SCH ×2 (07:59→12:29)
[2018-11-27 08:13] VITALS: BP 105/60
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
[2018-11-27 17:08] LABS: CLARITY,URINE SLIGHTLY CLOUDY (Clear); COLOR,URINE YELLOW (Yellow); GLUCOSE, URINE NEGATIVE (Neg); KETONES,URINE NEGATIVE (Neg); LEUKOCYTE ESTERASE ,URINE LARGE (Neg); NITRITES, URINE NEGATIVE (Neg); OCCULT BLOOD,URINE NEGATIVE (Neg); PROTEIN,URINE NEGATIVE (Neg); UROBILINOGEN,URINE 0.2 E.U/dL (0.2-1.0)
[2018-11-27 17:09] LABS: UA COLLECTION TYPE CLN CATCH MIDSTREAM
[2018-11-27 17:19] LABS: SQUAMOUS EPITHELIAL CELL,UR MODERATE /LPF (FEW)
[2018-11-27 17:21] LABS: BACTERIA,URINE FEW /HPF (Neg); RBC,URINE 0-2 /HPF (0-2)
[2018-11-27 19:57] VITALS: BP 112/67
[2018-11-27] MEDS: OLANZAPINE 5 MG TABLET PO SCH (20:27)
[2018-11-27] MEDS: QUEtiapine 25mg tablet PO SCH (20:28)
[2018-11-27] MEDS: albuterol 2.5 MG/3 ML nebule NEB PRN (22:44)
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
[2018-11-28 07:54] VITALS: BP 104/51
[2018-11-28] MEDS: topiramate 25mg tablet PO SCH ×2 (08:23→20:20)
[2018-11-28] MEDS: lamoTRIgine 25mg tablet PO SCH (08:23)
[2018-11-28] MEDS: OLANZapine 2.5MG tablet PO SCH ×2 (08:24→12:53)
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
[2018-11-28] MEDS: acetaminophen 325mg tablet PO PRN (19:03)
[2018-11-28 19:55] VITALS: BP 155/72
[2018-11-28] MEDS: sulfamethoxazole/trimethoprim DS (800/160mg) tablet PO SCH (20:20)
[2018-11-28] MEDS: QUEtiapine 25mg tablet PO SCH (20:20)
[2018-11-28] MEDS: OLANZAPINE 5 MG TABLET PO SCH (20:20)
[2018-11-28] MEDS: LORazepam 1 MG tablet PO PRN (22:22)
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
[2018-11-29 08:18] VITALS: BP 91/45
[2018-11-29] MEDS: OLANZapine 2.5MG tablet PO SCH ×2 (08:25→12:43)
[2018-11-29] MEDS: sulfamethoxazole/trimethoprim DS (800/160mg) tablet PO SCH ×2 (08:25→20:00)
[2018-11-29] MEDS: topiramate 25mg tablet PO SCH ×2 (08:25→21:09)
[2018-11-29] MEDS: lamoTRIgine 25mg tablet PO SCH (08:25)
--- NOTE | 2018-11-29 10:32 | NUR ---
Reassessment: Patient's PO intake more stable at 75-100% meeting nutrient needs. Wt stable since last RD assessment. [facility] 11/28. No nutrition diagnosis at this time. Will continue to follow. Recommend: 1. continue regular diet 2. monitor need for ONS 3. bowel care as needed; monitor need for additional 4. weekly weights Addendum: 11/29/18 at [address] Amended: Links added.
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
[2018-11-29 20:30] VITALS: BP 116/78
[2018-11-29] MEDS: OLANZAPINE 5 MG TABLET PO SCH (21:08)
[2018-11-29] MEDS: QUEtiapine 25mg tablet PO SCH (21:08)
[2018-11-29] MEDS: albuterol 2.5 MG/3 ML nebule NEB PRN (22:25)
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
[2018-11-30 08:00] VITALS: BP 106/54
[2018-11-30] MEDS: OLANZapine 2.5MG tablet PO SCH ×2 (08:00→13:10)
[2018-11-30] MEDS: topiramate 25mg tablet PO SCH ×2 (08:01→20:24)
[2018-11-30] MEDS: sulfamethoxazole/trimethoprim DS (800/160mg) tablet PO SCH ×2 (08:01→20:24)
[2018-11-30] MEDS: lamoTRIgine 25mg tablet PO SCH (08:01)
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
[2018-11-30 20:13] VITALS: BP 114/72
[2018-11-30] MEDS: QUEtiapine 25mg tablet PO SCH (20:24)
[2018-11-30] MEDS: OLANZAPINE 5 MG TABLET PO SCH (20:24)
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
[2018-11-30] MEDS: albuterol 2.5 MG/3 ML nebule NEB PRN (23:41)
[2018-12-01 08:00] VITALS: BP 98/50
[2018-12-01] MEDS: sulfamethoxazole/trimethoprim DS (800/160mg) tablet PO SCH ×2 (08:06→20:42)
[2018-12-01] MEDS: lamoTRIgine 25mg tablet PO SCH (08:06)
[2018-12-01] MEDS: topiramate 25mg tablet PO SCH ×2 (08:07→20:42)
[2018-12-01] MEDS: OLANZapine 2.5MG tablet PO SCH ×2 (08:07→12:38)
--- NOTE | 2018-12-01 12:26 | NUR ---
DISCHARGE PLANNING: SW made TC to pt's mother, Dannielle Jon, mother,[phone], and left message reqeusting a return contact. SW is requesting dates and times of currently scheduled appointments. Komal Sanchez, Nitric Acid Plant Operator BICYCLE INSPECTOR [id number] Supervised by Juan Carlos Gardner, [id number]
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
[2018-12-01 20:00] VITALS: BP 126/74
[2018-12-01] MEDS: OLANZAPINE 5 MG TABLET PO SCH (20:42)
[2018-12-01] MEDS: QUEtiapine 25mg tablet PO SCH (20:42)
[2018-12-01] MEDS: acetaminophen 325mg tablet PO PRN (20:43)
[2018-12-01] MEDS: albuterol 2.5 MG/3 ML nebule NEB PRN (22:24)
--- NOTE | 2018-12-01 22:26 | NUR ---
RT Called for breathing tx. patient uncoop RN tried to reason with patient. Patient threw nebulizer accross the room on the floor.
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
[2018-12-02 08:00] VITALS: BP 112/57
[2018-12-02] MEDS: sulfamethoxazole/trimethoprim DS (800/160mg) tablet PO SCH ×2 (08:28→21:05)
[2018-12-02] MEDS: topiramate 25mg tablet PO SCH ×2 (08:29→21:05)
[2018-12-02] MEDS: lamoTRIgine 25mg tablet PO SCH (08:29)
[2018-12-02] MEDS ORDERED: tuberculin, purif. prot. deriv. 5 units/0.1ml ID ONE (13:40)
--- NOTE | 2018-12-02 13:47 | NUR ---
Called Ct's mother, Dannielle Jon [phone], to discuss discharge planning. She reported she was interested in Ct going to [facility]. Explained the program and the voluntary nature of it. Informed her that sports book writer will talk to Oh about it to see if she is interested. She reported she would like Oh to follow up with a psychiatrist in [facility] as she had been seeing one in [place].
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
--- NOTE | 2018-12-02 16:01 | NUR ---
Completed [facility] referral and spoke to Ct about [facility]. Faxed completed referral to [facility] office. PEARL Sneed Lic # [id number]
[2018-12-02 19:00] VITALS: BP 121/73
[2018-12-02] MEDS: OLANZAPINE 5 MG TABLET PO SCH (21:05)
[2018-12-02] MEDS: QUEtiapine 25mg tablet PO SCH (21:05)
[2018-12-02] MEDS: LORazepam 1 MG tablet PO PRN (23:53)
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
[2018-12-03 07:30] VITALS: BP 97/49
[2018-12-03 08:00] VITALS: BP 97/49
[2018-12-03] MEDS: lamoTRIgine 25mg tablet PO SCH (08:47)
[2018-12-03] MEDS: topiramate 25mg tablet PO SCH ×2 (08:48→20:00)
[2018-12-03] MEDS: CARIPRAZINE 1.5 MG CAPSULE PO SCH (08:48)
[2018-12-03] MEDS: sulfamethoxazole/trimethoprim DS (800/160mg) tablet PO SCH (08:50)
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
[2018-12-03 19:00] VITALS: BP 115/66
[2018-12-03] MEDS: QUEtiapine 25mg tablet PO SCH (21:20)
[2018-12-03] MEDS: OLANZAPINE 5 MG TABLET PO SCH (21:20)
[2018-12-03] MEDS: albuterol 2.5 MG/3 ML nebule NEB PRN (22:32)
[2018-12-03] MEDS: LORazepam 1 MG tablet PO PRN (22:44)
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
[2018-12-04 08:00] VITALS: BP 91/60
[2018-12-04] MEDS: topiramate 25mg tablet PO SCH ×2 (08:35→20:55)
[2018-12-04] MEDS: CARIPRAZINE 1.5 MG CAPSULE PO SCH (08:36)
[2018-12-04] MEDS: lamoTRIgine 25mg tablet PO SCH (08:36)
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
[2018-12-04 19:57] VITALS: BP 114/65
[2018-12-04] MEDS: LORazepam 1 MG tablet PO PRN (20:55)
[2018-12-04] MEDS: QUEtiapine 25mg tablet PO SCH (20:55)
[2018-12-04] MEDS: OLANZAPINE 5 MG TABLET PO SCH (20:55)
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
[2018-12-05 08:00] VITALS: BP 102/49
[2018-12-05] MEDS: topiramate 25mg tablet PO SCH ×2 (08:10→20:10)
[2018-12-05] MEDS: CARIPRAZINE 1.5 MG CAPSULE PO SCH (08:14)
[2018-12-05] MEDS: lamoTRIgine 100mg tablet PO SCH (08:14)
--- NOTE | 2018-12-05 14:40 | NUR ---
Reassessment: Pt PO 100% regular diet meeting needs. LBM 12/02. No nutrition concerns at this time. Recommend: 1. continue regular diet 2. bowel care as needed; monitor need for additional 3. weekly weights Addendum: 12/05/18 at [address] Amended: Links added.
--- NOTE | 2018-12-05 15:34 | NUR ---
[facility], met with Rohini to interview her today. He reported he does not think she is appropriate at this time and may be more appropriate next week. He reported we could re-present her later. PEARL Sneed Lic # [id number]
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
[2018-12-05 19:52] VITALS: BP 116/72
[2018-12-05] MEDS: OLANZAPINE 5 MG TABLET PO SCH (20:10)
[2018-12-05] MEDS: QUEtiapine 25mg tablet PO SCH (20:10)
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
[2018-12-06] MEDS: topiramate 25mg tablet PO SCH ×2 (07:55→20:26)
[2018-12-06] MEDS: lamoTRIgine 100mg tablet PO SCH (07:55)
[2018-12-06 08:00] VITALS: BP 124/70
[2018-12-06] MEDS: CARIPRAZINE 1.5 MG CAPSULE PO SCH (08:00)
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
[2018-12-06] MEDS: QUEtiapine 25mg tablet PO SCH (20:26)
[2018-12-06] MEDS: OLANZAPINE 5 MG TABLET PO SCH (20:26)
[2018-12-06 20:52] VITALS: BP 117/64
[2018-12-06] MEDS: acetaminophen 325mg tablet PO PRN (21:32)
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
[2018-12-06] MEDS: LORazepam 1 MG tablet PO PRN (22:06)
[2018-12-07] MEDS: topiramate 25mg tablet PO SCH (07:54)
[2018-12-07] MEDS: lamoTRIgine 100mg tablet PO SCH (07:54)
[2018-12-07] MEDS: CARIPRAZINE 1.5 MG CAPSULE PO SCH (08:10)
[2018-12-07 08:34] VITALS: BP 111/58
--- NOTE | 2018-12-07 11:44 | NUR ---
SIVAKUMAR Tyson, interviewed Ct on the unit. He reported Ct declined [facility]. Tj Willis, [facility] Lic# [id number]
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
[2018-12-07] MEDS: OLANZAPINE 5 MG TABLET PO SCH (20:22)
[2018-12-07 20:52] VITALS: BP 120/70
[2018-12-07] MEDS: acetaminophen 325mg tablet PO PRN (23:02)
[2018-12-07] MEDS: LORazepam 1 MG tablet PO PRN (23:28)
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
[2018-12-08 08:00] VITALS: BP 97/50
[2018-12-08] MEDS: lamoTRIgine 25mg tablet PO SCH (08:11)
[2018-12-08] MEDS: topiramate 25mg tablet PO SCH (08:11)
[2018-12-08] MEDS: CARIPRAZINE 1.5 MG CAPSULE PO SCH (08:14)
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
[2018-12-08 20:00] VITALS: BP 126/78
[2018-12-08] MEDS: LORazepam 1 MG tablet PO PRN (21:01)
[2018-12-08] MEDS: OLANZAPINE 5 MG TABLET PO SCH (21:01)
[2018-12-08] MEDS: hydrOXYzine 25 MG tablet PO PRN (22:34)
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
[2018-12-09] MEDS: topiramate 25mg tablet PO SCH (07:32)
[2018-12-09] MEDS: CARIPRAZINE 1.5 MG CAPSULE PO SCH (07:32)
[2018-12-09] MEDS: lamoTRIgine 25mg tablet PO SCH (07:32)
[2018-12-09 08:12] VITALS: BP 110/66
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
[2018-12-09 19:00] VITALS: BP 130/73
[2018-12-09] MEDS: hydrOXYzine 25 MG tablet PO PRN (20:58)
[2018-12-09] MEDS: OLANZAPINE 5 MG TABLET PO SCH (20:58)
[2018-12-09] MEDS ORDERED: haloperidol lactate 5mg/ml inj IM ONE (23:05)
[2018-12-09] MEDS ORDERED: diphenhydrAMINE 50 mg/ml inj IM ONE (23:05)
[2018-12-09] MEDS ORDERED: LORazepam 2 mg/ml vial IM ONE (23:05)
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
[2018-12-10] MEDS: lamoTRIgine 25mg tablet PO SCH (07:41)
[2018-12-10] MEDS: topiramate 25mg tablet PO SCH (07:41)
[2018-12-10] MEDS: CARIPRAZINE 1.5 MG CAPSULE PO SCH (07:41)
[2018-12-10 07:56] VITALS: BP 115/79
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
[2018-12-10 19:00] VITALS: BP 139/77
[2018-12-10] MEDS: LORazepam 1 MG tablet PO PRN (20:13)
[2018-12-10] MEDS: OLANZAPINE 5 MG TABLET PO SCH (20:13)
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
[2018-12-11] MEDS: traZODone 50mg tablet PO PRN ×2 (00:51→20:18)
[2018-12-11] MEDS: topiramate 25mg tablet PO SCH (07:31)
[2018-12-11] MEDS: lamoTRIgine 25mg tablet PO SCH (07:31)
[2018-12-11] MEDS: CARIPRAZINE 1.5 MG CAPSULE PO SCH (07:32)
[2018-12-11 08:00] VITALS: BP 115/75
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
[2018-12-11 19:17] VITALS: BP 136/82
[2018-12-11 19:50] VITALS: BP 136/82
[2018-12-11] MEDS: LORazepam 1 MG tablet PO PRN (19:59)
[2018-12-11] MEDS: OLANZAPINE 5 MG TABLET PO SCH (20:18)
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
[2018-12-12 08:00] VITALS: BP 128/72
[2018-12-12] MEDS: CARIPRAZINE 1.5 MG CAPSULE PO SCH (08:00)
[2018-12-12] MEDS: topiramate 25mg tablet PO SCH (09:32)
[2018-12-12] MEDS: lamoTRIgine 25mg tablet PO SCH (09:33)
--- NOTE | 2018-12-12 09:34 | NUR ---
Patient initially refused meds this AM, but now agreed to take them. Meds given late.
[2018-12-12] MEDS ORDERED: CARI1.5C PO (13:28)
[2018-12-12] MEDS ORDERED: HYDR-3686 PO (13:28)
[2018-12-12] MEDS ORDERED: TRAZ-251 PO (13:28)
[2018-12-12] MEDS ORDERED: LAMO25TA5 PO (13:28)
[2018-12-12] MEDS ORDERED: ATI1T PO (13:28)
--- NOTE | 2018-12-12 15:37 | NUR ---
Wound Pictures not taken upon discharge because patient refused. Addendum: 12/12/18 at 1538 by Keo Grubbs RN Amended: Links added.
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
== END 2018-12-12 16:40 | disposition home or self-care (01) | DRG 885 ==
LOC: ADULT MH 19:10
PROVIDERS: ADMIT Psychiatry & Neurology Psychiatry; ATTEND Psychiatry & Neurology Psychiatry
DX: F29 Unspecified psychosis not due to a substance or known physiological condition (principal); R45.851 Suicidal ideations; N39.0 Urinary tract infection, site not specified; J45.909 Unspecified asthma, uncomplicated; F84.0 Autistic disorder; F20.9 Schizophrenia, unspecified; E66.3 Overweight; Z68.29 Body mass index [BMI] 29.0-29.9, adult; Z79.899 Other long term (current) drug therapy
CPT/HCPCS: 36415; 80061; 81001; 83036; 87081; 87088; 94640; 94760; Z7610

== ENCOUNTER 2019-07-12 22:04 | Emergency (ER) | payer MEDICAID ==
[~2019-07-12] VITALS: Ht 160 cm; Wt 78.1 kg
[~2019-07-12 22:04] MED LIST changes: +ATI1T PO; +CARI1.5C PO; +HYDR-3686 PO; +LAMO25TA5 PO; -QUET-1 PO; -RISP1TAB13 PO; -RISP1TAB3 PO; -TOP100T PO; -TOPI25TA15 PO; +TRAZ-251 PO
[2019-07-12] MEDS ORDERED: LORazepam 2 mg/ml vial IM ONE (22:35)
[2019-07-12] MEDS ORDERED: haloperidol lactate 5mg/ml inj IM ONE (22:35)
[2019-07-12] MEDS ORDERED: diphenhydrAMINE 50 mg/ml inj IM ONE (22:35)
--- NOTE | 2019-07-12 22:55 | NUR ---
ASSUMED CARE OF PT, PT IS CRYING AND YELLING CUSSING AT STAFF, REFUSING BLOOD DRAW AT THIS TIME, UNABLE TO CONSOLE PT, MEDICATED PER ORDER,
--- NOTE | 2019-07-12 23:12 | NUR ---
pt is eating crackers and drinking apple juice, she does not know her meds, "and don't call my mom...I want nothing to do with her", pt did say she recently became homeless, when I ask her questions she just says "I don't know...I don't know"
--- NOTE | 2019-07-12 23:19 | NUR ---
unable to do [place] as pt keeps saying "I don't know...I don't know"
--- NOTE | 2019-07-12 23:34 | NUR ---
TRIED TO GET PT TO PROVIDE A URINE - SHE IS NOT WILLING TO TRY AT THIS TIME.
[2019-07-12 23:40] LABS: BASOPHILS % (AUTO) 0.3 % (0-1); EOSINOPHILS # (AUTO) 0.1 X10'3 (0-0.9); EOSINOPHILS % (AUTO) 0.9 % (0-6); HEMATOCRIT 41.3 % (35.0-45.0); LYMPHOCYTES # (AUTO) 2.1 X10'3 (1.1-4.8); MEAN CORPUSCULAR VOLUME 91.2 FL (78-98); MEAN PLATELET VOLUME 7.3 FL (7.4-10.4); MONOCYTES % (AUTO) 9.1 % (2-12); NEUTROPHILS # (AUTO) 7.4 X10'3 (1.8-7.7); NEUTROPHILS % (AUTO) 69.7 % (42-75); PLATELET COUNT 267 X10'3 (140-440); RED BLOOD COUNT 4.53 X10'6 (4.20-5.60); RED CELL DISTRIBUTION WIDTH 12.6 % (11.5-14.5); WHITE BLOOD COUNT 10.6 X10'3 (4.5-11.0)
[2019-07-13 00:03] LABS: ALANINE AMINOTRANSFERASE 20 U/L (12-78); ALBUMIN 3.9 G/DL (3.4-5.0); ALBUMIN/GLOBULIN RATIO 1.1 (1.1-1.5); ALKALINE PHOSPHATASE 87 IU/L (46-116); ANION GAP 14 (8-16); ASPARTATE AMINO TRANSFERASE 13 U/L (10-37); BILIRUBIN,TOTAL 0.3 MG/DL (0.1-1.0); BLOOD UREA NITROGEN 14 MG/DL (7-18); BUN/CREATININE RATIO 12.4 (6.6-38.0); CALCIUM 9.4 MG/DL (8.5-10.1); CHLORIDE 106 MMOL/L (99-107); CREATININE 1.13 MG/DL (0.40-0.90); ETHANOL < 0.010 GM/DL (0.0-0.010); GLUCOSE 106 MG/DL (70-104); POTASSIUM 3.5 MMOL/L (3.5-5.1); SODIUM 141 MMOL/L (135-145); TOTAL CARBON DIOXIDE 21.3 MMOL/L (24-32); TOTAL PROTEIN 7.3 G/DL (6.4-8.2); eGFR 56 ML/MIN
--- NOTE | 2019-07-13 01:11 | NUR ---
CALLED REPORT TO [facility] IN OVERFLOW. TRANSPORTING PT TO BED 25
--- NOTE | 2019-07-13 01:21 | NUR ---
pt brought here into overflow to bed 25. she is still in a gurney d/t pt sleeping. Pt unable to provide urine sample at this time.
[2019-07-13 05:55] VITALS: BP 105/65
--- NOTE | 2019-07-13 06:38 | NUR ---
Patient sleeping on right side. Respirations equal. No distress observed. RN covered patient with warm blanket as patient us uncovered. Continue to monitor.
[2019-07-13] MEDS ORDERED: BENZ1TAB7 PO (07:02)
[2019-07-13] MEDS ORDERED: RISP4TAB2 PO (07:02)
[2019-07-13] MEDS ORDERED: PRAZ2CAP2 PO (07:02)
[2019-07-13] MEDS ORDERED: ARIP30TA7 PO (07:02)
[2019-07-13] MEDS ORDERED: benztropine 1mg tablet PO SCH (08:00)
[2019-07-13] MEDS ORDERED: ARIPIPRAZOLE 15 MG TABLET PO SCH (08:00)
[2019-07-13 08:32] LABS: URINE HCG NEGATIVE (NEG)
--- NOTE | 2019-07-13 08:33 | NUR ---
Patient is pleasant and ambulatory to BR, steady gait. No distress observed. Continue to monitor.
[2019-07-13 08:34] LABS: CLARITY,URINE SLIGHTLY CLOUDY (Clear); COLOR,URINE STRAW (Yellow); GLUCOSE, URINE NEGATIVE (Neg); KETONES,URINE NEGATIVE (Neg); LEUKOCYTE ESTERASE ,URINE MODERATE (Neg); NITRITES, URINE NEGATIVE (Neg); OCCULT BLOOD,URINE NEGATIVE (Neg); PROTEIN,URINE NEGATIVE (Neg); UROBILINOGEN,URINE 0.2 E.U/dL (0.2-1.0)
[2019-07-13 08:35] LABS: UA COLLECTION TYPE CLN CATCH MIDSTREAM
[2019-07-13 08:36] LABS: URINE AMPHETAMINE SCREEN NEGATIVE (Neg); URINE BARBITUATE SCREEN NEGATIVE (Neg); URINE BENZODIAZEPINES SCREEN NEGATIVE (Neg); URINE CANNABINOID SCREEN NEGATIVE (Neg); URINE COCAINE SCREEN NEGATIVE (Neg); URINE METHADONE SCREEN NEGATIVE (Neg); URINE OPIATE SCREEN NEGATIVE (Neg); URINE PHENCYCLIDINE SCREEN NEGATIVE (Neg)
[2019-07-13 08:40] LABS: BACTERIA,URINE 2+ /HPF (Neg); SQUAMOUS EPITHELIAL CELL,UR FEW /LPF (FEW)
[2019-07-13 08:41] LABS: RBC,URINE 0-2 /HPF (0-2); TRANSITIONAL EPI CELLS,URINE FEW /HPF
--- NOTE | 2019-07-13 10:25 | NUR ---
Patient sleeping and given a warm blanket. No distress observed. Continue to monitor.
--- NOTE | 2019-07-13 10:55 | NUR ---
SANCHEZ Combs speaking to patient. No distress observed. Continue to monitor.
--- NOTE | 2019-07-13 11:40 | NUR ---
Patient awake and alert. Patient denies suicidal ideation and denies hearing voices. Patient's skin is warm and dry, color pink. Continue to monitor.
[2019-07-13] MEDS ORDERED: prazosin 1mg capsule PO SCH (21:00)
[2019-07-13] MEDS ORDERED: risperiDONE 2mg tablet PO SCH (21:00)
== END 2019-07-13 12:38 | disposition home or self-care (01) ==
LOC: ER 22:05
DX: R45.850 Homicidal ideations (principal); R45.851 Suicidal ideations; F20.9 Schizophrenia, unspecified; J45.909 Unspecified asthma, uncomplicated; Z79.899 Other long term (current) drug therapy
CPT/HCPCS: 36415; 80053; 80305; 80320; 81001; 81025; 84443; 85025; 96372; 99285; J1200; J1630; J2060

== ENCOUNTER 2020-05-25 02:14 | Emergency (ER) | payer MEDICAID ==
[~2020-05-25] VITALS: Ht 165.1 cm; Wt 88.0 kg
[~2020-05-25 02:14] MED LIST changes: -ALBU8HFA PO; +ARIP30TA7 PO; -ATI1T PO; +BENZ1TAB7 PO; -CARI1.5C PO; -HYDR-3686 PO; -LAMO25TA5 PO; +PRAZ2CAP2 PO; +RISP4TAB73 PO; -TRAZ-251 PO
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
--- NOTE | 2020-05-25 02:50 | NUR ---
Patient denies any suicidal ideation at this time or ever in the past.
[2020-05-25 03:05] LABS: BASOPHILS % (AUTO) 0.4 % (0-1); EOSINOPHILS # (AUTO) 0.2 X10'3 (0-0.9); EOSINOPHILS % (AUTO) 2.1 % (0-6); LYMPHOCYTES # (AUTO) 2.2 X10'3 (1.1-4.8); LYMPHOCYTES % (AUTO) 27.7 % (21-51); MEAN CORPUSCULAR HEMOGLOBIN 30.5 PG (27.0-31.0); MEAN CORPUSCULAR HGB CONC 33.3 g/dL (33.0-36.5); MEAN CORPUSCULAR VOLUME 91.7 FL (78-98); MEAN PLATELET VOLUME 7.3 FL (7.4-10.4); MONOCYTES # (AUTO) 0.8 X10'3 (0-0.9); MONOCYTES % (AUTO) 10.2 % (2-12); NEUTROPHILS # (AUTO) 4.8 X10'3 (1.8-7.7); NEUTROPHILS % (AUTO) 59.6 % (42-75); PLATELET COUNT 278 X10'3 (140-440); RED BLOOD COUNT 4.26 X10'6 (4.20-5.60); RED CELL DISTRIBUTION WIDTH 12.4 % (11.5-14.5)
[2020-05-25 03:10] LABS: URINE HCG NEGATIVE (NEG)
[2020-05-25 03:19] LABS: URINE AMPHETAMINE SCREEN NEGATIVE (Neg); URINE BARBITUATE SCREEN NEGATIVE (Neg); URINE BENZODIAZEPINES SCREEN NEGATIVE (Neg); URINE CANNABINOID SCREEN NEGATIVE (Neg); URINE COCAINE SCREEN NEGATIVE (Neg); URINE METHADONE SCREEN NEGATIVE (Neg); URINE OPIATE SCREEN NEGATIVE (Neg); URINE PHENCYCLIDINE SCREEN NEGATIVE (Neg)
[2020-05-25 03:21] LABS: ALANINE AMINOTRANSFERASE 42 U/L (12-78); ALBUMIN 4.3 G/DL (3.4-5.0); ALBUMIN/GLOBULIN RATIO 1.2 (1.1-1.5); ALKALINE PHOSPHATASE 109 IU/L (46-116); ANION GAP 13 (8-16); ASPARTATE AMINO TRANSFERASE 35 U/L (10-37); BILIRUBIN,TOTAL 0.3 MG/DL (0.1-1.0); BLOOD UREA NITROGEN 11 MG/DL (7-18); BUN/CREATININE RATIO 11.7 (6.6-38.0); CALCIUM 9.9 MG/DL (8.5-10.1); CHLORIDE 105 MMOL/L (99-107); CREATININE 0.94 MG/DL (0.40-0.90); GLUCOSE 135 MG/DL (70-104); POTASSIUM 3.8 MMOL/L (3.5-5.1); SODIUM 143 MMOL/L (135-145); TOTAL CARBON DIOXIDE 25.3 MMOL/L (24-32); eGFR 69 ML/MIN
[2020-05-25] MEDS ORDERED: TRAZ300T2 PO (03:28)
[2020-05-25] MEDS ORDERED: MONT10TA32 PO (03:28)
[2020-05-25 03:29] LABS: ETHANOL < 0.010 GM/DL (0.0-0.010)
[2020-05-25] MEDS ORDERED: RISP4TAB73 PO (03:29)
[2020-05-25] MEDS ORDERED: OLAN15TA20 PO (03:30)
--- NOTE | 2020-05-25 03:31 | NUR ---
Mom, Dannielle Jon, telephoned ([phone]) about patient's current medications. Mom states that patient was supposed to be switching someof her meds to include Seroquel and Temezepam but that patient refuses to take those new medications. Mom also updated on plan of care.
--- NOTE | 2020-05-25 05:05 | NUR ---
Patient states she "needs my inhaler". 02 sat checked and is 97% on room air, lungs sounds are clear. Patient encouraged to deep breathe.
--- NOTE | 2020-05-25 05:15 | NUR ---
pt requesting her inhaler. no respiratory distress noted. pt was assessed by primary RN and had clear lung sounds and o2 sat of 98%
--- NOTE | 2020-05-25 05:42 | NUR ---
Patient's packet was sent to [facility]
--- NOTE | 2020-05-25 07:00 | NUR ---
Received pt asleep in bed without signs of distress.
[2020-05-25] MEDS ORDERED: montelukast 10mg tablet PO SCH (08:00)
--- NOTE | 2020-05-25 08:32 | NUR ---
[facility] IN ROOM EVALUATING PT
--- NOTE | 2020-05-25 09:00 | NUR ---
Pt cooperative with move from main ER to ER overflow and now is sleeping without complaints.
[2020-05-25 10:47] LABS: CLARITY,URINE CLEAR (Clear); COLOR,URINE YELLOW (Yellow); GLUCOSE, URINE NEGATIVE (Neg); KETONES,URINE NEGATIVE (Neg); LEUKOCYTE ESTERASE ,URINE NEGATIVE (Neg); NITRITES, URINE NEGATIVE (Neg); OCCULT BLOOD,URINE TRACE-INTACT (Neg); PROTEIN,URINE NEGATIVE (Neg); UROBILINOGEN,URINE 0.2 E.U/dL (0.2-1.0)
[2020-05-25 10:53] LABS: UA COLLECTION TYPE CLN CATCH MIDSTREAM
[2020-05-25 10:54] LABS: BACTERIA,URINE NONE SEEN /HPF (Neg); WBC,URINE NONE SEEN /HPF (0-4)
[2020-05-25 10:55] LABS: MUCUS STRANDS NONE SEEN /LPF (Neg); RBC,URINE 0-2 /HPF (0-2); SQUAMOUS EPITHELIAL CELL,UR NONE SEEN /LPF (FEW)
--- NOTE | 2020-05-25 11:00 | NUR ---
Pt resting quietly in bed without complaints. Pt has been pleasant upon approach.
--- NOTE | 2020-05-25 11:15 | NUR ---
Pt cooperative with COVID test
--- NOTE | 2020-05-25 11:39 | NUR ---
accepted at [facility] by Dr. Willson, pending covid test
--- NOTE | 2020-05-25 12:54 | NUR ---
COVID RESULTS FAXED TO [facility]
--- NOTE | 2020-05-25 13:00 | NUR ---
Mom came and visited for about 30 minutes and dropped off a change of clothes and then took pt's purse and ipod home.
--- NOTE | 2020-05-25 14:25 | NUR ---
AWAITING TRANSPORTATION, ETA 193 FOR PATIENT TO GO TO [facility] [place]
--- NOTE | 2020-05-25 15:00 | NUR ---
Pt laying in bed, awake in no apparent distress and no requests.
--- NOTE | 2020-05-25 15:49 | NUR ---
pt asked for nebulizer treatment. O2 sat. 98%. pt stated "I'll be ok". Will continue to monitor
--- NOTE | 2020-05-25 17:00 | NUR ---
Pt sitting up in bed watching television with flat affect. Pt states she is bored, but she is calm and cooperative.
[2020-05-25 17:46] VITALS: BP 126/76
--- NOTE | 2020-05-25 19:37 | NUR ---
Andrew from [facility] office here to transport patient. Copy of hold given to Andrew and background of admission discussed.
[2020-05-25] MEDS ORDERED: traZODone 150mg tablet PO SCH (21:00)
[2020-05-25] MEDS ORDERED: olanzapine 10mg tablet PO SCH (21:00)
[2020-05-25] MEDS ORDERED: quetiapine 100mg tablet PO SCH (21:00)
[2020-05-25] MEDS ORDERED: risperiDONE 2mg tablet PO SCH (21:00)
== END 2020-05-25 19:39 ==
LOC: ER 02:15
DX: F29 Unspecified psychosis not due to a substance or known physiological condition (principal); Z20.822 Contact with and (suspected) exposure to COVID-19; R45.850 Homicidal ideations; J45.909 Unspecified asthma, uncomplicated; F20.9 Schizophrenia, unspecified; Z79.899 Other long term (current) drug therapy
CPT/HCPCS: 36415; 80053; 80305; 80320; 81001; 81025; 84443; 85025; 87426; 99285

== ENCOUNTER 2020-06-24 21:40 | Emergency (ER) | payer MEDICAID ==
[~2020-06-24] VITALS: Ht 317.5 cm; Wt 75.0 kg
[~2020-06-24 21:40] MED LIST changes: -ARIP30TA7 PO; -BENZ1TAB7 PO; +MONT10TA32 PO; +OLAN15TA20 PO; -PRAZ2CAP2 PO; +TRAZ300T2 PO
[2020-06-24 22:37] LABS: BASOPHILS % (AUTO) 0.4 % (0-1); EOSINOPHILS # (AUTO) 0.1 X10'3 (0-0.9); EOSINOPHILS % (AUTO) 1.1 % (0-6); HEMATOCRIT 41.1 % (35.0-45.0); HEMOGLOBIN 14.2 g/dl (12.0-16.0); LYMPHOCYTES # (AUTO) 1.8 X10'3 (1.1-4.8); MEAN CORPUSCULAR HEMOGLOBIN 31.8 PG (27.0-31.0); MEAN CORPUSCULAR HGB CONC 34.4 g/dL (33.0-36.5); MEAN CORPUSCULAR VOLUME 92.4 FL (78-98); MEAN PLATELET VOLUME 7.4 FL (7.4-10.4); MONOCYTES # (AUTO) 0.8 X10'3 (0-0.9); MONOCYTES % (AUTO) 8.8 % (2-12); NEUTROPHILS # (AUTO) 6.7 X10'3 (1.8-7.7); NEUTROPHILS % (AUTO) 70.7 % (42-75); PLATELET COUNT 356 X10'3 (140-440); RED BLOOD COUNT 4.45 X10'6 (4.20-5.60); RED CELL DISTRIBUTION WIDTH 12.7 % (11.5-14.5); WHITE BLOOD COUNT 9.5 X10'3 (4.5-11.0)
[2020-06-24 22:39] LABS: URINE HCG NEGATIVE (NEG)
[2020-06-24 22:50] LABS: ALANINE AMINOTRANSFERASE 31 U/L (12-78); ALBUMIN 4.4 G/DL (3.4-5.0); ALBUMIN/GLOBULIN RATIO 1.1 (1.1-1.5); ALKALINE PHOSPHATASE 130 IU/L (46-116); ANION GAP 16 (8-16); ASPARTATE AMINO TRANSFERASE 22 U/L (10-37); BILIRUBIN,TOTAL 0.4 MG/DL (0.1-1.0); BLOOD UREA NITROGEN 13 MG/DL (7-18); BUN/CREATININE RATIO 14.8 (6.6-38.0); CALCIUM 9.5 MG/DL (8.5-10.1); CHLORIDE 107 MMOL/L (99-107); CREATININE 0.88 MG/DL (0.40-0.90); GLUCOSE 113 MG/DL (70-104); POTASSIUM 4.3 MMOL/L (3.5-5.1); SODIUM 141 MMOL/L (135-145); TOTAL CARBON DIOXIDE 18.2 MMOL/L (24-32); TOTAL PROTEIN 8.4 G/DL (6.4-8.2); eGFR 74 ML/MIN
[2020-06-24 22:51] LABS: URINE AMPHETAMINE SCREEN NEGATIVE (Neg); URINE BARBITUATE SCREEN NEGATIVE (Neg); URINE BENZODIAZEPINES SCREEN NEGATIVE (Neg); URINE CANNABINOID SCREEN NEGATIVE (Neg); URINE COCAINE SCREEN NEGATIVE (Neg); URINE METHADONE SCREEN NEGATIVE (Neg); URINE OPIATE SCREEN NEGATIVE (Neg); URINE PHENCYCLIDINE SCREEN NEGATIVE (Neg)
[2020-06-24 22:59] LABS: ETHANOL < 0.010 GM/DL (0.0-0.010)
[2020-06-24] MEDS ORDERED: albuterol 2.5 MG/3 ML nebule NEB PRN (23:10)
[2020-06-24] MEDS ORDERED: ALBUTEROL INHALER 1 PUFF/90 MCG INHALER IH PRN ×2 (23:10→23:20)
[2020-06-24] MEDS: risperiDONE 2mg tablet PO SCH (23:24)
[2020-06-24] MEDS: diphenhydrAMINE 25mg capsule PO SCH (23:24)
--- NOTE | 2020-06-25 02:05 | NUR ---
Pt cooperative with admit process. Took HS meds. Has not been asleep sitting up in bed. At times laughs in response to internal stimuli.
--- NOTE | 2020-06-25 04:06 | NUR ---
packet sent to [facility]
--- NOTE | 2020-06-25 05:41 | NUR ---
Pt dozed occassionly but has been awake most of shift. Lying in bed quietly at this time.
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
[2020-06-25] MEDS: ALBUTEROL INHALER 1 PUFF/90 MCG INHALER IH PRN ×2 (10:07→20:11)
--- NOTE | 2020-06-25 10:42 | NUR ---
Per [facility], 5150 written as origil was incomplete. [facility] placement being sought.
--- NOTE | 2020-06-25 15:10 | NUR ---
Pt provided home med (inhaler) to aid in ease of breathing. There has been a fair amount of activity on the unit which appears to stress pt. She is easily redirected, but takes longer with each encounter as activity levels increase.
[2020-06-25] MEDS ORDERED: TOPI25TA49 PO (16:10)
[2020-06-25] MEDS ORDERED: PROP20TA6 PO (16:10)
[2020-06-25] MEDS ORDERED: OLAN5TAB3 PO (16:21)
[2020-06-25] MEDS ORDERED: CARI1.5C PO (16:21)
[2020-06-25] MEDS ORDERED: OLAN20TA3 PO (16:21)
--- NOTE | 2020-06-25 18:33 | NUR ---
Rcvd report from Chiqui Hannon RN. Pt is sitting on the edge of her bed eating dinner at change of shift. She is quiet, calm and cooperative. Pt has no complaints. Denies s/i, denies h/i. Pt requested to use the phone then proceeded to call her mother and cry and attempt to convince her mother to let her come home. Pt voices some delusions stating "they're giving me white people medicine here and I dont take that! Im and can't take medicine!" then threatens "Im going to keep everyone up all night here if you don't come get me!" When patients mother ends the call, pt states "Bitch you dont even care about me!"
[2020-06-25] MEDS ORDERED: OLANZAPINE 5 MG TABLET PO SCH (21:00)
[2020-06-25] MEDS: risperiDONE 2mg tablet PO SCH (21:00)
[2020-06-25] MEDS: diphenhydrAMINE 25mg capsule PO SCH (21:00)
[2020-06-25] MEDS: olanzapine 10mg tablet PO SCH (21:00)
--- NOTE | 2020-06-25 21:01 | NUR ---
pt is refusing medications at this time, stating "Im afghan and algerian, this is a [facility] medicine and I dont take that!" Pt is wanting to call her mother and is unable to get through on the phone. She states she doesnt go to bed until 11pm and wants to go upstairs to [facility]. Provided education on generic meds vs brand she takes at home and discussed pill colors with patient and she states she wants to wait till closer to bedtime to take them. Will try again at a later time.
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
--- NOTE | 2020-06-25 22:39 | NUR ---
Pt has been offered meds multiple times, she states they arent the right color, or the right name, etc. She was shown the pill wrappers, provided with medication education on the generic vs trade names of meds. She then states she can't swallow pills. Offered to get an order to crush them and take with applesauce and pt declines as well stating "I cant take meds they will make me ." Pt was assured she will be safe while she is here and monitored and she continues to refuse meds. Reminded patient that she takes meds to help her sleep at night and told her it would feel like a long night for her if she doesn't sleep well, she replied "I guess it will be a long night then."
--- NOTE | 2020-06-26 01:05 | NUR ---
pt is sitting quietly on her bed, upright w/legs crossed. RR 16. She whispers to herself at times.
[2020-06-26] MEDS: ALBUTEROL INHALER 1 PUFF/90 MCG INHALER IH PRN ×3 (02:44→13:03)
--- NOTE | 2020-06-26 03:06 | NUR ---
Pt up to use the bathroom and walked across the room saying "bitch bitch bitch" she went into the bathoom and came out and requested to use her inhaler which she did. Pt states "Im going to ." She sighs a lot and stands and stares at staff momentarily then sits back down on her bed. Pt appears to be tired. Suggested patient try to lay down and offered to adjust patients bed and help her get comfortable but patient declined.
--- NOTE | 2020-06-26 03:52 | NUR ---
pt is sitting up in bed, stating she needs to go outside because she is having a panic attack, states "this is bullshit". She is talking quietly but can be heard. Offered to get medication for patient but she continues to decline medication. Pt is calmly sitting in bed, appears tired but is refusing to lay down. She did accept a warm blanket and put her feet into bed.
--- NOTE | 2020-06-26 06:13 | NUR ---
pt didnt sleep all night, refused medications, refused to lay down. c/o being tired but refused anything offered to help her sleep. Pt is sitting quietly in her bed.
--- NOTE | 2020-06-26 06:43 | NUR ---
Patient sitting up in bed after not sleeping all night. No distress observed. Continue to monitor.
--- NOTE | 2020-06-26 07:39 | NUR ---
RN spoke to patient and asked her why she doesn't want to sleep. Patient states she is not getting the right medications. RN looked up meds. Patient was on Risperdal last prescribed 05/12 for 30 days. Patient wants to be on this med. RN will call Dr Farrell [phone], [facility], this morning and get an updated list. Continue to monitor.
--- NOTE | 2020-06-26 08:52 | NUR ---
Patient sitting up in bed after eating breakfast. No distress observed. Continue to monitor.
--- NOTE | 2020-06-26 10:01 | NUR ---
Patient is slightly reclining and falling asleep. No distress observed. Continue to monitor.
--- NOTE | 2020-06-26 10:55 | NUR ---
Dr Garduno evaluating patient. No distress observed. Continue to monitor.
--- NOTE | 2020-06-26 11:30 | NUR ---
LEROY, Mick, speaking with patient. Patient can barely keep her eyes open. No distress observed. Continue to monitor.
[2020-06-26 12:39] LABS: CLARITY,URINE SLIGHTLY CLOUDY (Clear); COLOR,URINE STRAW (Yellow); GLUCOSE, URINE NEGATIVE (Neg); KETONES,URINE NEGATIVE (Neg); LEUKOCYTE ESTERASE ,URINE MODERATE (Neg); NITRITES, URINE NEGATIVE (Neg); OCCULT BLOOD,URINE TRACE-INTACT (Neg); PH,URINE 5.5 (4.8-8.0); PROTEIN,URINE NEGATIVE (Neg); UROBILINOGEN,URINE 0.2 E.U/dL (0.2-1.0)
[2020-06-26 12:42] LABS: UA COLLECTION TYPE CLN CATCH MIDSTREAM
[2020-06-26 12:48] LABS: WBC,URINE 20-30 /HPF (0-4)
[2020-06-26 12:49] LABS: BACTERIA,URINE FEW /HPF (Neg); MUCUS STRANDS NONE SEEN /LPF (Neg); RBC,URINE NONE SEEN /HPF (0-2); SQUAMOUS EPITHELIAL CELL,UR MODERATE /LPF (FEW)
[2020-06-26 12:50] LABS: FINE GRANULAR CAST 0-3 /LPF (NEGATIVE); WBC CLUMPS,URINE MODERATE /HPF (NEGATIVE)
--- NOTE | 2020-06-26 13:07 | NUR ---
Patient in the bathroom getting cleaned up. RN and Tech got the patient the towels and soap, etc. Patient keeps saying "You guys are sick." Patient wants a shower or bath but RN explained we don't have one here. During the time in the BR the patient requested her inhaler which RN gave her. She used it and gave it back. RN just checked on patient and patient stated "Leave me alone! I don't need your help." Continue to monitor.
--- NOTE | 2020-06-26 13:59 | NUR ---
RN assisted patient with putting on clean underwear and clean pants. Patient states she is not feeling safe. RN assured patient she is safe. Patient walked back to bed. Continue to monitor.
--- NOTE | 2020-06-26 15:31 | NUR ---
Patient was on Invega 3 mg ER at bedtime, but has not been taking medication.
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
--- NOTE | 2020-06-26 17:42 | NUR ---
Patient sitting up in bed and talking to herself. No distress observed. Continue to monitor.
--- NOTE | 2020-06-26 19:00 | NUR ---
PATIENT ASKED TO GET TO A SHOWER. I EXPLAINED TO HER THAT WE DONT HAVE SHOWERS. I PROVIDED HER WITH SOAP, TOWELS AND WASHCLOTHES AND A BASIN WHICH SHE BROUGHT INTO THE BATHROOM. CHECKED ON PATIENT AFTER 15 MINUTES. PATIENT HAD NOT DONE ANYTHING FILLED BASIN WITH SOAPY WARM WATER AND LEFT. AFTER ANOTHER 15 MINUTES PATIENT WAS SITTING ON THE FLOOR AND NO BATHING HAD TAKEN PLACE. I GAVE HER ANOTHER 10 MINUTES AND A TOOTHBRUSH AND TOOTHPASTE. PATIENT STILL HAD NOT USED ANY HYGIEN PRODUCTS. PATIENT WALKED BACK TO HER BED.
--- NOTE | 2020-06-26 19:01 | NUR ---
NOTE THAT THE WHOLE TIME THE PATIENT WAS IN THE BATHROOM SHE WAS SITTING ON A TOWEL ON THE FLOOR WITH HER SHIRT OFF. PROVIDED CLEAN SHIRT ANDS EVENTUALLY HAD TO HELP PATIENT PUT HER SHIRT ON
[2020-06-26] MEDS: propranolol 10mg tablet PO SCH (20:00)
[2020-06-26] MEDS: topiramate 25mg tablet PO SCH (20:00)
--- NOTE | 2020-06-26 20:30 | NUR ---
I WENT TO PATIENT'S BEDSIDE TO DISCUSS HER MEDICATIONS. "I JUST WANT TO GO TO [facility]" I TALKED WITH HER ABOUT COOPERATING WITH TREATMENT. WE TALKED ABOUT EACH MEDICATION AND SHE REFUSED EACH ONE. SHE STATES "I DONT WANT TO SLEEP" "I DONT WANT TO IN [place] SLEEP" PATIENT APPEARS TO BELIEVE THAT IF SHE TAKES ANY MEDICATION IT WILL MAKE HER SLEEPY AND SHE WILL . PATIENT IS ROCKING IN HER BED AND RAPIDLY BUT QUIETLY TALKING TO HERSELF AND THEN AT TIMES CCACKLING LOUDLY WITH LAUGHTER. HER EYES MOVE BACK AND FORTH RAPIDLY AND SHE USES HER FINGERS, MOSTLY ON HER LEFT HAND MAKING SYMBOLS LIKE SIGN LANGUAGE VERY RAPIPDLY WELL. AT TIMES SHE WILL STARE BALNKLY WITH EYES RAPIDLY MOVING SIDE TO SIDE AND EYELIDS FLUTTERING.
[2020-06-26] MEDS ORDERED: OLANZAPINE 5 MG TABLET PO SCH ×2 (21:00)
[2020-06-26] MEDS: olanzapine 10mg tablet PO SCH (21:00)
[2020-06-26] MEDS: diphenhydrAMINE 25mg capsule PO SCH (21:00)
[2020-06-26] MEDS: montelukast 10mg tablet PO SCH (21:00)
--- NOTE | 2020-06-26 23:15 | NUR ---
PATIENT STILL ALTERNATING BETWEEN NON STOP TALKING TO HERSELF IN A LOW VOICE WITH EYES FLICKERING BACK AND FORTH, TO LOUD OUTBURSTS OF LAUGHTER: WAKING OTHER PATIENTS UP, TO SAYING " YOU FUCKING BITCHES" REPETETIVELY AND LOUD
--- NOTE | 2020-06-27 01:57 | NUR ---
FOR THE THIRD TIME PATIENT ASKED FOR WASH CLOTH AND SOAP AND TOWELS. SUGGESTED WARM WIPES WHICH THE PATIENT AGREED TO USE. TALKED WITH HER ABOUT HOW TO USE THE WIPES. WHEN PATIENT EVENTUALLY CAME OUT OF THE BATHROOM, SHE DID NOT USE ANY WIPES ON HER ARMPITS OR SHE PUT IT "MY STINKY AREA DOWN THERE". PATIENT WALKED BACK TO BED WHERE SHE CONTINUES TO SIT, ALTERNATING AT TIMES BETWEEN TALKING TO HERSELF, OR CALLING OUT TO US (THE TECH AND I) THAT WE ARE BAD.
--- NOTE | 2020-06-27 02:57 | NUR ---
PATIENT SITTING AT END OF BED AND STILL HAS NOT SLEPT ONE WINK SINCE HER ARRIVAL. SHE IS REPETITIVELY MUTTERING "YOU FUCKING BITCH" OVER AND OVER
--- NOTE | 2020-06-27 03:30 | NUR ---
PATIENT SITTING WITH HER LEGS IN THE BED. IASKED HER IF SHE WOULD LIKE A WARM BLANKET: 2 WARM BLANKETS PROVIDED AND PATIENT FELL ASLEEP AFTER WRAPPING A BLANKET AROUND HERSELF ANDHAVING A WARM BLAKET PLACED OVE RTHE REST OF HER BODY
--- NOTE | 2020-06-27 04:30 | NUR ---
PATIENT AWOKE BRIEFLY AND I PLACED ANOTHER WARM BLANKET OVER HER AND SHE FELL BACK TO SLEEP RR EVEN AND UNLABORED
--- NOTE | 2020-06-27 06:32 | NUR ---
PATIENT APPERS TO BE SLEEPING AT THIS TIME, EYES CLOSED RR EVEN AND UNLABORED
--- NOTE | 2020-06-27 06:58 | NUR ---
PT SLEEPING ON RIGHT SIDE NO DISTRESS NOTED.
[2020-06-27] MEDS: propranolol 10mg tablet PO SCH ×2 (08:00→20:00)
[2020-06-27] MEDS: topiramate 25mg tablet PO SCH ×2 (08:00→20:00)
[2020-06-27] MEDS: CARIPRAZINE 1.5 MG CAPSULE PO SCH (08:00)
--- NOTE | 2020-06-27 10:48 | NUR ---
pt sitting up in bed, when asked if she needed anything she states "leave me alone"
--- NOTE | 2020-06-27 12:25 | NUR ---
pt sitting in bed quietly. stable and in nad.
--- NOTE | 2020-06-27 14:00 | NUR ---
pt sitting in bed with legs crossed. Laughing loudly for short periods for unknown reason.
--- NOTE | 2020-06-27 15:59 | NUR ---
pt sitting up in bed quietly whispering to herself. when asked if she needs anything she states "no" and continues talking to herself.
--- NOTE | 2020-06-27 18:24 | NUR ---
Call from pt.'s mother inquiring about plan for pt. Dannielle [phone]
--- NOTE | 2020-06-27 19:53 | NUR ---
Pt. found sitting on the floor in the bathroom. stated she wasn't feeling good but did not want any help. pt. was escorted back to bed, cooperative and calm.
[2020-06-27] MEDS: olanzapine 10mg tablet PO SCH (21:00)
[2020-06-27] MEDS: ALBUTEROL INHALER 1 PUFF/90 MCG INHALER IH PRN (21:17)
[2020-06-27] MEDS: diphenhydrAMINE 25mg capsule PO SCH (21:18)
[2020-06-27] MEDS: montelukast 10mg tablet PO SCH (21:21)
--- NOTE | 2020-06-27 21:45 | NUR ---
Pt. took some of her meds tonight without issue. didn't want zyprexa and asking for Risperdall instead which is what she takes at home. will discuss with
--- NOTE | 2020-06-27 22:30 | NUR ---
PT IS RESTING QUIETLY ON BED
--- NOTE | 2020-06-27 23:48 | NUR ---
PT IS STANDING IN DOOR WAY DOING SIGN LANGUAGE
[2020-06-28] MEDS ORDERED: haloperidol lactate 5mg/ml inj IM ONE (00:25)
--- NOTE | 2020-06-28 00:30 | NUR ---
PT ON THE GROUND, STARTING TO TALK AND YELL, MEDICATED PER ORDER, SECURITY AT BEDSIDE TO ASSIST WITH IM ORDER
--- NOTE | 2020-06-28 01:42 | NUR ---
pt sitting quietly in bed,calm,cooperative, pt not in distress, sitter outside the room.
--- NOTE | 2020-06-28 02:11 | NUR ---
pt ambulated to restroom and back in room 11 on a steady gait accompanied by monica.
[2020-06-28] MEDS: diphenhydrAMINE 25mg capsule PO SCH (03:23)
[2020-06-28] MEDS: olanzapine 10mg tablet PO SCH (03:23)
--- NOTE | 2020-06-28 03:23 | NUR ---
pt given po medication and sandwhich and a cup of ice water, pt tolerated well. sitter outside the room.
--- NOTE | 2020-06-28 04:21 | NUR ---
pt asleep, sitter outside the room.
--- NOTE | 2020-06-28 05:23 | NUR ---
pt asleep, resp even and unlabored, sitter outside the room.
[2020-06-28] MEDS: topiramate 25mg tablet PO SCH ×2 (09:06→20:00)
[2020-06-28] MEDS: CARIPRAZINE 1.5 MG CAPSULE PO SCH (09:06)
[2020-06-28] MEDS: propranolol 10mg tablet PO SCH ×2 (09:06→19:59)
--- NOTE | 2020-06-28 09:12 | NUR ---
PT WOKEN UP FOR AM MEDS, VS AND BREAKFAST. PT SITTING UP IN BED EATING. NO NEEDS AT THIS TIME
--- NOTE | 2020-06-28 15:18 | NUR ---
report given by Rusty GIBSON, assumed care. Pt sitting up in bed, deniess needs.
--- NOTE | 2020-06-28 17:46 | NUR ---
pt continues to lay in bed, even chest rise and fall
--- NOTE | 2020-06-28 19:23 | NUR ---
FOOD TRAY GIVEN
[2020-06-28] MEDS ORDERED: risperiDONE 2mg tablet PO ONE (20:05)
--- NOTE | 2020-06-28 20:06 | NUR ---
Patient requested Risperidone to "help me sleep". Dr. Garduno notifed, new orders received.
[2020-06-28] MEDS: montelukast 10mg tablet PO SCH (21:00)
--- NOTE | 2020-06-28 22:01 | NUR ---
pt standing up in room, sitter in view of pt. pt denies needs.
--- NOTE | 2020-06-28 23:39 | NUR ---
sitter in view of pt. pt appears asleep
--- NOTE | 2020-06-29 03:07 | NUR ---
report given to RN, care transferred
--- NOTE | 2020-06-29 04:15 | NUR ---
Pt resting comfortably, respirations normal, no s/s of distress.
--- NOTE | 2020-06-29 05:20 | NUR ---
Pt resting comfortably, respirations normal, no s/s of distress.
--- NOTE | 2020-06-29 06:20 | NUR ---
Patient moved over from Main to ED OF 22. Ambulatory, steady gait. No distress observed. Continue to monitor.
--- NOTE | 2020-06-29 07:55 | NUR ---
Patient has been sound asleep since soon after she was moved to ED OF. Patient continues to sleep. Continue to monitor.
--- NOTE | 2020-06-29 08:31 | NUR ---
Patient sitting up and eating breakfast. No distress observed. Continue to monitor.
[2020-06-29] MEDS: topiramate 25mg tablet PO SCH ×2 (08:40→20:05)
[2020-06-29] MEDS: propranolol 10mg tablet PO SCH ×2 (08:41→20:05)
[2020-06-29] MEDS: CARIPRAZINE 1.5 MG CAPSULE PO SCH (08:41)
[2020-06-29] MEDS ORDERED: ibuprofen 200mg tablet PO ONE (08:45)
--- NOTE | 2020-06-29 09:31 | NUR ---
Patient had advised RN that she has body pain and a ENRIQUE and wanted Ibuprofen. RN req med from and gave to patient. Patient is sleeping supine, sound asleep. Patient took her medication as prescribed. Continue to monitor.
--- NOTE | 2020-06-29 11:36 | NUR ---
Patient sleeping supine. No distress observed. Continue to monitor.
--- NOTE | 2020-06-29 13:15 | NUR ---
Patient sitting up and eating. No distress observed. Continue to monitor.
--- NOTE | 2020-06-29 14:10 | NUR ---
Patient's mother at bedside. Patient was calm and cooperative and talking to mom. Mom noticed patient was doing better. No distress observed. Continue to monitor.
--- NOTE | 2020-06-29 16:09 | NUR ---
Patient sitting up in bed. No distress observed. Continue to monitor.
--- NOTE | 2020-06-29 17:03 | NUR ---
Patient eating a snack. No distress observed. Continue to monitor.
--- NOTE | 2020-06-29 18:30 | NUR ---
The patient quietly resting on her bed. Offered TV to watch a program but she is declining at this time.
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
--- NOTE | 2020-06-29 19:46 | NUR ---
The patient is on the phone talking with her mother and is crying.
[2020-06-29] MEDS: diphenhydrAMINE 25mg capsule PO SCH (20:05)
[2020-06-29] MEDS: olanzapine 10mg tablet PO SCH (20:05)
[2020-06-29] MEDS: montelukast 10mg tablet PO SCH (20:05)
[2020-06-29] MEDS: ALBUTEROL INHALER 1 PUFF/90 MCG INHALER IH PRN (20:16)
--- NOTE | 2020-06-29 20:30 | NUR ---
Patient on the phone with her mother and crying loudly. She then became angry and calling her mother a bitch and saying that she hated her. The patient remained angry when redirected from phone call and called the field service tech a bitch and glaring at her. She is refusing medications at this time although she did take her HS medications
--- NOTE | 2020-06-29 22:51 | NUR ---
The patient remains awake and appears preoccupied by internal stimuli.
[2020-06-30] MEDS ORDERED: LORazepam 1 MG tablet PO ONE ×2 (00:20→19:50)
--- NOTE | 2020-06-30 00:29 | NUR ---
The patient appears to be very labile. She has not been able to sleep. Spoke with the ER MD and medications ordered. THe patient is currently somatic. "I'm going to pass out! I need to go outside" and stating "I dont want to here!" repeatedly then suddenly began to state "I'm not a schizophrenic you bitch" The patient laughs at odd times and appears to be internally preoccupied.
--- NOTE | 2020-06-30 02:08 | NUR ---
The patient appears to be sleeping
--- NOTE | 2020-06-30 03:56 | NUR ---
THe patient appears to be sleeping
--- NOTE | 2020-06-30 06:00 | NUR ---
The patient appears to have slept well the rest of the night after receiving ativan
--- NOTE | 2020-06-30 07:00 | NUR ---
Resting with eyes closed, respirations normal
--- NOTE | 2020-06-30 09:43 | NUR ---
Pt still asleep, occassionally turns side to side
[2020-06-30] MEDS: propranolol 10mg tablet PO SCH ×2 (12:21→19:59)
[2020-06-30] MEDS: CARIPRAZINE 1.5 MG CAPSULE PO SCH (12:21)
[2020-06-30] MEDS: topiramate 25mg tablet PO SCH ×2 (12:21→19:59)
--- NOTE | 2020-06-30 13:00 | NUR ---
Eating lunch quietly at her bed
--- NOTE | 2020-06-30 13:30 | NUR ---
Yelling and swearing at her mom on the phone. Hung up and called staff names, then quieted down.
--- NOTE | 2020-06-30 18:41 | NUR ---
The patient is quietly laying on her bed. She stated she had a good day. She is denying voices. She appears relaxed.
[2020-06-30] MEDS: olanzapine 10mg tablet PO SCH (19:59)
[2020-06-30] MEDS: diphenhydrAMINE 25mg capsule PO SCH (20:00)
[2020-06-30] MEDS: montelukast 10mg tablet PO SCH (20:00)
--- NOTE | 2020-06-30 20:43 | NUR ---
The patient sitting up on her bed. She took all of her evening medications without issue.
--- NOTE | 2020-06-30 21:19 | NUR ---
The patient appears to be sleeping.
--- NOTE | 2020-06-30 22:42 | NUR ---
The patient appears to be sleeping
--- NOTE | 2020-07-01 01:02 | NUR ---
The patient appears to be sleeping
--- NOTE | 2020-07-01 02:38 | NUR ---
The patient appears to be sleeping
--- NOTE | 2020-07-01 04:24 | NUR ---
The patient appears to be sleeping.
[2020-07-01 05:49] VITALS: BP 99/55
--- NOTE | 2020-07-01 05:54 | NUR ---
The patient appears to be sleeping well and had slept well during the night.
--- NOTE | 2020-07-01 08:35 | NUR ---
PT AWAKE EATING BREAKFAST
[2020-07-01] MEDS: CARIPRAZINE 1.5 MG CAPSULE PO SCH (08:58)
[2020-07-01] MEDS: propranolol 10mg tablet PO SCH (08:59)
[2020-07-01] MEDS: topiramate 25mg tablet PO SCH (08:59)
== END 2020-07-01 10:59 | disposition home or self-care (01) ==
LOC: ER 21:40
DX: F20.9 Schizophrenia, unspecified (principal); Z20.822 Contact with and (suspected) exposure to COVID-19; R45.6 Violent behavior; J45.909 Unspecified asthma, uncomplicated; F29 Unspecified psychosis not due to a substance or known physiological condition; Z79.899 Other long term (current) drug therapy
CPT/HCPCS: 36415; 80053; 80305; 80320; 81001; 81025; 84443; 85025; 87088; 87426; 96372; 99285; Q0163

== ENCOUNTER 2020-07-08 11:30 | Emergency (ER) | payer MEDICAID ==
[~2020-07-08] VITALS: Ht 167.6 cm; Wt 150.0 kg
[~2020-07-08 11:30] MED LIST changes: +CARI1.5C PO; -OLAN15TA20 PO; +OLAN20TA3 PO; +OLAN5TAB3 PO; +PROP20TA6 PO; -RISP4TAB73 PO; +TOPI25TA49 PO; -TRAZ300T2 PO
[2020-07-08] MEDS ORDERED: LORazepam 1 MG tablet PO ONE (12:00)
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
--- NOTE | 2020-07-08 12:20 | NUR ---
Pt agreed to take Ativan orally when only given the choice between routes (oral vs IM). She took it without issue after being told it was to help with anxiety.
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
--- NOTE | 2020-07-08 13:01 | NUR ---
Pt is notably calm and asked for something to eat. Will clear request with EDMD Ankita and provide sandwich if ok'd.
--- NOTE | 2020-07-08 13:54 | NUR ---
Discussed the likely consequences of lab draw on pt w/ EDMD Luciano along with [facility]'s Mick effort to determine next step given pt is calm presently. Per EDMD ok to hold lab draw until Mick provides an update.
--- NOTE | 2020-07-08 14:10 | NUR ---
Per Bean, [facility], ok to proceed with medical clearance without blood draw as pt was seen here w/ full labs done ~ 1 wk ago. ALEXANDR Luciano & MAYRA Unger aware.
--- NOTE | 2020-07-08 17:10 | NUR ---
PER COLT, PT NOT YET MEDICALLY CLEARED FOR [facility] PSYCHOS[facility]IAL ASSESSMENT. SHE WILL LIKELY NOT BE SEEN UNTIL TOMORROW AM A RESULT. ALEXANDR SULLIVAN AND MAYRA CAO NOTIFIED.
--- NOTE | 2020-07-08 17:47 | NUR ---
PT MOVED FROM ER BED 16 TO OVERFLOW BED 22
--- NOTE | 2020-07-08 18:49 | NUR ---
The patient has finished dinner, and is sitting up in bed. No s/s of distress.
[2020-07-08 18:56] LABS: URINE AMPHETAMINE SCREEN NEGATIVE (Neg); URINE BARBITUATE SCREEN NEGATIVE (Neg); URINE BENZODIAZEPINES SCREEN NEGATIVE (Neg); URINE CANNABINOID SCREEN NEGATIVE (Neg); URINE COCAINE SCREEN NEGATIVE (Neg); URINE METHADONE SCREEN NEGATIVE (Neg); URINE OPIATE SCREEN NEGATIVE (Neg); URINE PHENCYCLIDINE SCREEN NEGATIVE (Neg)
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
--- NOTE | 2020-07-08 19:47 | NUR ---
Call to patient's mother to obtain a medication list but no answer. Left message.
--- NOTE | 2020-07-08 20:06 | NUR ---
The patient's mother called back and confirmed her current medications. Medication rec completed and medications ordered.
[2020-07-08] MEDS ORDERED: montelukast 10mg tablet PO SCH (21:00)
[2020-07-08] MEDS ORDERED: olanzapine 10mg tablet PO SCH (21:00)
--- NOTE | 2020-07-08 21:36 | NUR ---
Patient is awake and sitting on the side of her bed. She has had night time meds. Denies needs at this time.
--- NOTE | 2020-07-08 22:12 | NUR ---
Patient is in bed in supine position. She is still awake, but looks real tired.
--- NOTE | 2020-07-08 23:28 | NUR ---
The patient appears to be asleep on her right side. No s/s of distress.
--- NOTE | 2020-07-09 00:48 | NUR ---
The patient is lying on her left side and appears to be asleep.
--- NOTE | 2020-07-09 02:08 | NUR ---
The patient appears asleep on her left side.
--- NOTE | 2020-07-09 03:26 | NUR ---
The patient continues to sleep on her left side. No distress noted.
[2020-07-09 06:01] VITALS: BP 118/70
--- NOTE | 2020-07-09 06:02 | NUR ---
Patient awake, sitting up in bed looking at nurses station.
--- NOTE | 2020-07-09 07:29 | NUR ---
At start of day shift, pt was sitting quietly. As another pt began to experience increased anxiety, this pt was affected and began making loud in comprehensible sounds. Pt was redirectable. The exhibited is the same behaviour this RN witnessed yesterday when caring for pt upon her arrival to ED. Will continue to monitor for increased anxiety.
[2020-07-09] MEDS: topiramate 25mg tablet PO SCH ×2 (08:00→14:09)
[2020-07-09] MEDS: CARIPRAZINE 1.5 MG CAPSULE PO SCH ×2 (08:00→14:09)
[2020-07-09] MEDS ORDERED: propranolol 10mg tablet PO SCH (08:00)
--- NOTE | 2020-07-09 08:30 | NUR ---
Pt refusing meds. Agitation level high.
--- NOTE | 2020-07-09 08:41 | NUR ---
LEROY Barton attempted to engaged pt for psychosocial assessment. She began screaming profanities while becoming increasingly agitated. Pt not easily redirected. ALEXANDR López contacted; new order for Ativan 1mg received. Pt indicated she would take PO versus getting an IM.
[2020-07-09] MEDS ORDERED: LORazepam 1 MG tablet PO ONE (08:45)
--- NOTE | 2020-07-09 09:26 | NUR ---
Patient sitting up in bed, no signs of distress noted, bursted out in laughter x1 then calmed down, all safety measures in place.
--- NOTE | 2020-07-09 12:45 | NUR ---
Per Mick, pt is to be DC'd home to care of mother who will be picking her up ~1400. [facility]
--- NOTE | 2020-07-09 14:08 | NUR ---
Pt conveyed she would take some of the meds she refused earlier this AM. She is unwilling to take them all so psychotropics will be offered first.
== END 2020-07-09 14:23 | disposition home or self-care (01) ==
LOC: ER 11:31
DX: R45.1 Restlessness and agitation (principal); F20.9 Schizophrenia, unspecified; Z79.899 Other long term (current) drug therapy; J45.909 Unspecified asthma, uncomplicated
CPT/HCPCS: 80305; 99285

== ENCOUNTER 2020-07-15 04:54 | Emergency (ER) | payer MEDICAID ==
[~2020-07-15] VITALS: Ht 167.6 cm; Wt 76.0 kg
[~2020-07-15 04:54] MED LIST changes: -OLAN5TAB3 PO
[2020-07-15] MEDS ORDERED: OLANZapine 5mg rapidly disint. tablet PO ONE (05:00)
[2020-07-15 05:41] LABS: COLOR,URINE YELLOW (Yellow); GLUCOSE, URINE NEGATIVE (Neg); KETONES,URINE TRACE mg/dl (Neg); LEUKOCYTE ESTERASE ,URINE SMALL (Neg); NITRITES, URINE NEGATIVE (Neg); OCCULT BLOOD,URINE NEGATIVE (Neg); PROTEIN,URINE NEGATIVE (Neg); UROBILINOGEN,URINE 0.2 E.U/dL (0.2-1.0)
[2020-07-15 05:42] LABS: URINE HCG NEGATIVE (NEG)
[2020-07-15 05:43] LABS: BASOPHILS % (AUTO) 0.3 % (0-1); EOSINOPHILS # (AUTO) 0.2 X10'3 (0-0.9); EOSINOPHILS % (AUTO) 1.7 % (0-6); HEMOGLOBIN 13.6 g/dl (12.0-16.0); LYMPHOCYTES # (AUTO) 1.8 X10'3 (1.1-4.8); LYMPHOCYTES % (AUTO) 20.8 % (21-51); MEAN CORPUSCULAR HEMOGLOBIN 31.1 PG (27.0-31.0); MEAN CORPUSCULAR HGB CONC 33.2 g/dL (33.0-36.5); MEAN CORPUSCULAR VOLUME 93.6 FL (78-98); MEAN PLATELET VOLUME 7.6 FL (7.4-10.4); MONOCYTES # (AUTO) 0.8 X10'3 (0-0.9); NEUTROPHILS % (AUTO) 68.2 % (42-75); PLATELET COUNT 297 X10'3 (140-440); RED BLOOD COUNT 4.38 X10'6 (4.20-5.60); RED CELL DISTRIBUTION WIDTH 12.8 % (11.5-14.5); WHITE BLOOD COUNT 8.8 X10'3 (4.5-11.0)
[2020-07-15 05:46] LABS: UA COLLECTION TYPE CLN CATCH MIDSTREAM
[2020-07-15 05:47] LABS: BACTERIA,URINE FEW /HPF (Neg); CLARITY,URINE SLIGHTLY CLOUDY (Clear); RBC,URINE 0-2 /HPF (0-2); SQUAMOUS EPITHELIAL CELL,UR MODERATE /LPF (FEW)
[2020-07-15 05:48] LABS: RENAL CELLS, URINE FEW /HPF
[2020-07-15 05:49] LABS: URINE AMPHETAMINE SCREEN NEGATIVE (Neg); URINE BARBITUATE SCREEN NEGATIVE (Neg); URINE BENZODIAZEPINES SCREEN NEGATIVE (Neg); URINE CANNABINOID SCREEN NEGATIVE (Neg); URINE COCAINE SCREEN NEGATIVE (Neg); URINE METHADONE SCREEN NEGATIVE (Neg); URINE OPIATE SCREEN NEGATIVE (Neg); URINE PHENCYCLIDINE SCREEN NEGATIVE (Neg)
[2020-07-15 05:56] LABS: ALANINE AMINOTRANSFERASE 29 U/L (12-78); ALBUMIN/GLOBULIN RATIO 1.1 (1.1-1.5); ALKALINE PHOSPHATASE 105 IU/L (46-116); ANION GAP 11 (8-16); ASPARTATE AMINO TRANSFERASE 16 U/L (10-37); BILIRUBIN,TOTAL 0.4 MG/DL (0.1-1.0); BLOOD UREA NITROGEN 8 MG/DL (7-18); BUN/CREATININE RATIO 8.6 (6.6-38.0); CALCIUM 9.1 MG/DL (8.5-10.1); CHLORIDE 108 MMOL/L (99-107); CREATININE 0.93 MG/DL (0.40-0.90); GLUCOSE 114 MG/DL (70-104); SODIUM 143 MMOL/L (135-145); TOTAL CARBON DIOXIDE 24.3 MMOL/L (24-32); TOTAL PROTEIN 7.5 G/DL (6.4-8.2); eGFR 70 ML/MIN
[2020-07-15 06:14] LABS: ETHANOL < 0.010 GM/DL (0.0-0.010)
--- NOTE | 2020-07-15 08:30 | NUR ---
PT'S MOM CALLS TO CHECK ON PT. LEAVES HER NUMBER AND REQUESTS THAT [facility] CALL HER AFTER THE PT GETS EVALUATED. CJ WATKINS [phone]
--- NOTE | 2020-07-15 10:12 | NUR ---
PT HAS BEEN EVALUATED BY CLINITIAN FROM [facility]. PT WILL BE GETTING AN EVALUATION FROM A CLINITIAN [facility]) AT 1300. IF SHE QUALIFIES AND THEY ACCEPT HER SHE WILL BE GOING THERE AT THAT TIME. IF NOT SHE WILL BE DC TO [facility] WHO IS HER CONSERVATOR.
--- NOTE | 2020-07-15 12:52 | NUR ---
PT RESTING IN ROOM, HAD LUNCH NO DISTRESS
--- NOTE | 2020-07-15 13:00 | NUR ---
MENTAL HEALTH AT BEDSIDE TO JUNIE BRANHAM
--- NOTE | 2020-07-15 14:09 | NUR ---
PER [facility], PTS 5150 RENEWED AT THIS TIME.
--- NOTE | 2020-07-15 16:56 | NUR ---
SPOKE WITH [facility] WHO REQ'S COVID SWAB AND NEW VITALS, WILL DO BOTH. PT COOPERATIVE, NO DISTRESS
--- NOTE | 2020-07-15 20:00 | NUR ---
The patient was moved to bed 22 in the ER. She was cooperative with the move. Called her mother and requested that she call back and give an updated medication list. The patient's affect is flat and she just sits on her bed looking down at her sheets. She makes no requests. She is not engaging in any social conversations. When asked why she was here she stated, "I"m not sure" When asked if she was hearing voices she replied, "reny I'm not sure" When asked if she was having any pain she stated, "I don't know" WHen asked how her mood was she stated, "I don't know" When asked about suicidal thoughts she replied, "I reny was but I don't know how I feel right now"
--- NOTE | 2020-07-15 20:15 | NUR ---
Per [facility] the patient has been accepted at [facility] at the [place] location. The accepting MD is Dr. Gomez. They are requesting a nurse to nurse when she is discharged from the ER at [phone]
[2020-07-15] MEDS ORDERED: OLANZapine 2.5MG tablet PO ONE (20:50)
[2020-07-15] MEDS ORDERED: olanzapine 10mg tablet PO ONE (21:00)
--- NOTE | 2020-07-15 21:43 | NUR ---
The patient continues to sit up on her bed looking down at her sheets
--- NOTE | 2020-07-15 23:35 | NUR ---
The patient is sitting up on her bed but appears tired.
--- NOTE | 2020-07-16 01:15 | NUR ---
THe patient is up to the bathroom and she is awake
--- NOTE | 2020-07-16 02:45 | NUR ---
The patient appears to be sleeping
--- NOTE | 2020-07-16 04:54 | NUR ---
The patient appears to be sleeping
--- NOTE | 2020-07-16 06:00 | NUR ---
Nurse to nurse to Emperatriz GIBSON at [facility].
[2020-07-16 08:30] VITALS: BP 107/69
--- NOTE | 2020-07-16 09:43 | NUR ---
Andrei rom [facility] updated RN regardig POC for Pt. Pt has been accepted by psych facility already ( andrei will look up the [place]) and we are currently arranging for transport. Pt is in bed resting, non distress, and VSS.
--- NOTE | 2020-07-16 09:48 | NUR ---
Ronda from [facility] called RN and stated that they are sending a highway truck driver to merchandise pickup/receiving associate PT estemated time between 11:30 am and 12 pm.
--- NOTE | 2020-07-16 11:58 | NUR ---
ELIA GIBSON FROM [facility] CALLED AND ASKED IF THEY WILL BE EXPECTING PT SOON, RN ADVISED THAT TRANSPORT IS EXPECTED AROUDN NOON.
== END 2020-07-16 13:11 ==
LOC: ER 04:55
DX: F29 Unspecified psychosis not due to a substance or known physiological condition (principal); F20.9 Schizophrenia, unspecified; J45.909 Unspecified asthma, uncomplicated; Z79.899 Other long term (current) drug therapy
CPT/HCPCS: 36415; 80053; 80305; 80320; 81001; 81025; 84443; 85025; 87635; 99285; C9803

== ENCOUNTER 2020-08-26 12:09 | Emergency (ER) | payer MEDICAID ==
[~2020-08-26] VITALS: Ht 162.6 cm; Wt 80.0 kg
[2020-08-26] MEDS ORDERED: LORazepam 2 mg/ml vial IM ONE (12:15)
[2020-08-26] MEDS ORDERED: haloperidol lactate 5mg/ml inj IM ONE (12:15)
[2020-08-26 12:52] LABS: BASOPHILS % (AUTO) 0.5 % (0-1); EOSINOPHILS % (AUTO) 0.4 % (0-6); HEMATOCRIT 40.1 % (35.0-45.0); HEMOGLOBIN 13.8 g/dl (12.0-16.0); LYMPHOCYTES # (AUTO) 1.8 X10'3 (1.1-4.8); LYMPHOCYTES % (AUTO) 17.9 % (21-51); MEAN CORPUSCULAR HEMOGLOBIN 31.6 PG (27.0-31.0); MEAN CORPUSCULAR HGB CONC 34.4 g/dL (33.0-36.5); MEAN CORPUSCULAR VOLUME 91.8 FL (78-98); MEAN PLATELET VOLUME 7.7 FL (7.4-10.4); MONOCYTES # (AUTO) 0.9 X10'3 (0-0.9); MONOCYTES % (AUTO) 9.4 % (2-12); NEUTROPHILS # (AUTO) 7.1 X10'3 (1.8-7.7); NEUTROPHILS % (AUTO) 71.8 % (42-75); PLATELET COUNT 315 X10'3 (140-440); RED BLOOD COUNT 4.37 X10'6 (4.20-5.60); RED CELL DISTRIBUTION WIDTH 12.2 % (11.5-14.5); WHITE BLOOD COUNT 9.9 X10'3 (4.5-11.0)
[2020-08-26 13:06] LABS: ALANINE AMINOTRANSFERASE 36 U/L (12-78); ALBUMIN 4.7 G/DL (3.4-5.0); ALBUMIN/GLOBULIN RATIO 1.2 (1.1-1.5); ALKALINE PHOSPHATASE 115 IU/L (46-116); ANION GAP 21 (8-16); ASPARTATE AMINO TRANSFERASE 36 U/L (10-37); BILIRUBIN,TOTAL 0.9 MG/DL (0.1-1.0); BLOOD UREA NITROGEN 9 MG/DL (7-18); BUN/CREATININE RATIO 9.8 (6.6-38.0); CALCIUM 9.1 MG/DL (8.5-10.1); CHLORIDE 101 MMOL/L (99-107); CREATINE KINASE 984 U/L (26-192); CREATININE 0.92 MG/DL (0.40-0.90); ETHANOL < 0.010 GM/DL (0.0-0.010); GLUCOSE 82 MG/DL (70-104); POTASSIUM 3.6 MMOL/L (3.5-5.1); SODIUM 137 MMOL/L (135-145); TOTAL CARBON DIOXIDE 15.4 MMOL/L (24-32); TOTAL PROTEIN 8.7 G/DL (6.4-8.2); eGFR 71 ML/MIN
[2020-08-26 13:13] LABS: URINE HCG NEGATIVE (NEG)
[2020-08-26] MEDS ORDERED: normal saline 1000ML IV soln IV ONE (13:15)
[2020-08-26 13:24] LABS: URINE AMPHETAMINE SCREEN NEGATIVE (Neg); URINE BARBITUATE SCREEN NEGATIVE (Neg); URINE BENZODIAZEPINES SCREEN NEGATIVE (Neg); URINE CANNABINOID SCREEN NEGATIVE (Neg); URINE COCAINE SCREEN NEGATIVE (Neg); URINE METHADONE SCREEN NEGATIVE (Neg); URINE OPIATE SCREEN NEGATIVE (Neg); URINE PHENCYCLIDINE SCREEN NEGATIVE (Neg)
[2020-08-26 13:25] LABS: CLARITY,URINE SLIGHTLY CLOUDY (Clear); COLOR,URINE YELLOW (Yellow); GLUCOSE, URINE NEGATIVE (Neg); KETONES,URINE >=80 mg/dl (Neg); LEUKOCYTE ESTERASE ,URINE NEGATIVE (Neg); NITRITES, URINE NEGATIVE (Neg); OCCULT BLOOD,URINE LARGE (Neg); PROTEIN,URINE TRACE mg/dl (Neg); UROBILINOGEN,URINE 0.2 E.U/dL (0.2-1.0)
--- NOTE | 2020-08-26 13:25 | NUR ---
Patient acting out and being difficult. Patient is acting better than when she first arrived. Continue to monitor.
--- NOTE | 2020-08-26 13:42 | NUR ---
Patient fell asleep. Continue to monitor.
[2020-08-26 13:56] LABS: UA COLLECTION TYPE CLN CATCH MIDSTREAM
[2020-08-26 13:59] LABS: BACTERIA,URINE 1+ /HPF (Neg); MUCUS STRANDS FEW /LPF (Neg); SQUAMOUS EPITHELIAL CELL,UR FEW /LPF (FEW); WBC,URINE 0-4 /HPF (0-4)
--- NOTE | 2020-08-26 14:49 | NUR ---
FAXED [facility]
[2020-08-26] MEDS ORDERED: QUET-1 PO ×2 (16:56)
[2020-08-26] MEDS ORDERED: TOPI25CA6 PO (17:58)
[2020-08-26] MEDS ORDERED: LUMA42CA PO (17:58)
--- NOTE | 2020-08-26 19:00 | NUR ---
The patient is currently on her bed and appears to be sleeping
[2020-08-26] MEDS ORDERED: quetiapine 100mg tablet PO PRN (19:05)
[2020-08-26] MEDS: Lumateperone Tosylate (Caplyta) 42MG PO SCH (19:39)
--- NOTE | 2020-08-26 19:56 | NUR ---
The patient is awake and presents as calm and cooperative. She has a flat affect and gives no eye contact. Her PIV was discontinued. She denies any mental health symptoms. She was unable to state why she is here.
[2020-08-26] MEDS: propranolol 10mg tablet PO SCH (20:00)
[2020-08-26] MEDS: topiramate 25mg tablet PO SCH (20:08)
[2020-08-26] MEDS: montelukast 10mg tablet PO SCH (20:08)
[2020-08-26] MEDS: quetiapine 100mg tablet PO SCH (20:08)
--- NOTE | 2020-08-26 21:56 | NUR ---
The patient up to use the bathroom. She was disorganized requires assist with changing. She currently is resting on her bed.
--- NOTE | 2020-08-26 23:15 | NUR ---
The patient appears to be sleeping
--- NOTE | 2020-08-26 23:50 | NUR ---
The patient appears to be sleeping
--- NOTE | 2020-08-27 01:16 | NUR ---
The patient appears to be sleeping
--- NOTE | 2020-08-27 02:42 | NUR ---
The patient appears to be sleeping
--- NOTE | 2020-08-27 04:45 | NUR ---
The patient up to the bathroom and is now back and bed.
--- NOTE | 2020-08-27 06:28 | NUR ---
Pt is awake sitting on her bed. Pt is calm and cooperative.
[2020-08-27] MEDS: topiramate 25mg tablet PO SCH ×2 (08:00→20:18)
[2020-08-27] MEDS: propranolol 10mg tablet PO SCH ×2 (08:00→20:18)
--- NOTE | 2020-08-27 08:48 | NUR ---
Pt sitting on her bed finishing her breakfast. Pt allowed blood pressure prior to Inderal, pt then through medication one pill at a time on the floor. Pt appears to be responding to internal stimuli, talking to herself looking at pill cup, counting on her fingers. Pt laughing inappropriately to herself. Pt declined to answer any questions. Pt refused for 1:1 physical assessment to be performed. Will continue to monitor.
--- NOTE | 2020-08-27 09:14 | NUR ---
Pt required redirection as she threw her toothpaste from her bed.
[2020-08-27] MEDS ORDERED: LORazepam 2 mg/ml vial IM ONE (09:20)
[2020-08-27] MEDS ORDERED: haloperidol lactate 5mg/ml inj IM ONE (09:20)
--- NOTE | 2020-08-27 09:21 | NUR ---
Pt continues to escalate, throwing her water and refused PO medication. Received order for IM Ativan 1mg and Haldol 5mg.
--- NOTE | 2020-08-27 10:07 | NUR ---
Patient is sitting on bed, laughing to herself but sitting quietly.
--- NOTE | 2020-08-27 12:03 | NUR ---
Pt sitting on her bed talking to herself and laughing inappropriately. Pt uses her fingers to tap on her bedside tray. Pt has not slept since shift change.
--- NOTE | 2020-08-27 12:30 | NUR ---
Pt is in the bathroom and required redirection as she was flushing the toilet over and over again. When door was opened pt was naked standing in front of sink. Pt asked to wipe herself down and then was given clean green scrubs.
--- NOTE | 2020-08-27 14:15 | NUR ---
Patient continues to sit on her bed staring out at laughing and mumbling to self. Pt has not napped, but has not been difficult.
--- NOTE | 2020-08-27 16:03 | NUR ---
Pt is in her room sitting on the floor. Pt is not being difficult, but wants to sit next to her bed. Linens were changed. Pt continues to respond to internal stimuli.
[2020-08-27] MEDS: Lumateperone Tosylate (Caplyta) 42MG PO SCH (17:39)
--- NOTE | 2020-08-27 18:04 | NUR ---
Pt awake sitting cross-legged on bed eating dinner.
[2020-08-27] MEDS: montelukast 10mg tablet PO SCH (20:18)
[2020-08-27] MEDS: quetiapine 100mg tablet PO SCH (20:19)
--- NOTE | 2020-08-28 06:30 | NUR ---
Pt ambulated independently over from main ER to bed 22. Pt was quiet and cooperative. Pt continues to rest while insurance underwriter sales receives report.
[2020-08-28] MEDS: topiramate 25mg tablet PO SCH ×3 (08:00→20:00)
[2020-08-28] MEDS: propranolol 10mg tablet PO SCH ×3 (08:00→20:00)
--- NOTE | 2020-08-28 08:31 | NUR ---
Pt sleeping comfortably, attempted to wake pt for breakfast. Tray set at bedside.
--- NOTE | 2020-08-28 08:40 | NUR ---
Pt refused her AM medications. Pt presents as sedated, but does not act out and just wants to sleep.
--- NOTE | 2020-08-28 10:30 | NUR ---
Patient sleeping, no distress noted. Pt refused her breakfast r/t sedation.
--- NOTE | 2020-08-28 12:10 | NUR ---
Covid test obtained. Security was at bedside for standby assist. Pt tolerated well.
--- NOTE | 2020-08-28 12:35 | NUR ---
Pt awake sitting on her bed with a blanket pulled over the top of here. Pt answers to name.
--- NOTE | 2020-08-28 13:46 | NUR ---
Pt was declined at [facility].
--- NOTE | 2020-08-28 14:31 | NUR ---
Pt just woke up, sitting up in bed with lunch tray in front of her. Pt is calm.
--- NOTE | 2020-08-28 16:47 | NUR ---
Pt awake sitting on her bed with blanket over her head. Pt calm.
[2020-08-28] MEDS: Lumateperone Tosylate (Caplyta) 42MG PO SCH (18:00)
--- NOTE | 2020-08-28 19:05 | NUR ---
The patient observed eating her dinner and laughing and talking to herself. She has difficulty completing simple tasks such as making her bed. She has made no attempts at personal hygiene. She is gesturing. There is no question the patient is responding to internal stimuli but when asked she stated that she was not having any auditory or visual hallucinations. She stated her mood is "fine" She was given the task to make her bed but was only able to complete putting the pillow case back on her pillow. Her personal space was in disaray with food on the floor etc. She was encouraged to brush her hair and teeth and hygiene supplies were given but she did not follow through and had to be reminded.
--- NOTE | 2020-08-28 19:09 | NUR ---
[facility] has declined to accept the patient
[2020-08-28] MEDS: quetiapine 100mg tablet PO SCH ×2 (19:45→20:43)
[2020-08-28] MEDS: montelukast 10mg tablet PO SCH ×2 (19:45→20:43)
--- NOTE | 2020-08-28 19:53 | NUR ---
The patient is crying and talking to herself. She is refusing medications. When encouraged to take her medications she is telling staff to "fuck off"
--- NOTE | 2020-08-28 20:12 | NUR ---
The patient continues to refuse her medications stating "my family is . I'm an orphan. Can you call my mom?"
--- NOTE | 2020-08-28 20:40 | NUR ---
The patient was in the bathroom for approximately 15 minutes and was sitting crosslegged on the floor. She was requested to go back to her bed as other patients wanted to use the bathroom.
--- NOTE | 2020-08-28 21:03 | NUR ---
The patient is on her bed gesturing. She continues to refuse all of her HS medications
--- NOTE | 2020-08-28 22:38 | NUR ---
The patient continues to refuse her medications. She is sitting up on her bed responding to internal stimuli
--- NOTE | 2020-08-28 22:43 | NUR ---
The patient threw her water accross the room towards the nursing station but was unable to articulate why she did. The patient continues to appears very psychotic.
--- NOTE | 2020-08-28 23:55 | NUR ---
The patient is whispering to herself and occassionally making loud cackling laughter in response to internal stimuli
--- NOTE | 2020-08-29 00:08 | NUR ---
Received telephone call from [facility] requesting covid results and clarification on 2138. Message left with [facility] and covid results faxed to the facility.
--- NOTE | 2020-08-29 01:43 | NUR ---
The patient continues to laugh and whisper to herself
--- NOTE | 2020-08-29 03:40 | NUR ---
The patient continues to gesture, laugh and talk with people who are not there.
--- NOTE | 2020-08-29 05:11 | NUR ---
The patient has been awake throughout the night responding to internal stimuli
--- NOTE | 2020-08-29 06:32 | NUR ---
Received patient sitting up in bed laughing to self. Pt is calm at this time.
--- NOTE | 2020-08-29 07:55 | NUR ---
Pt sitting on bed laughing and talking to herself, gesturing with her hands. Pt refused AM medications "I don't need them."
[2020-08-29] MEDS: propranolol 10mg tablet PO SCH ×2 (08:00→19:50)
[2020-08-29] MEDS: topiramate 25mg tablet PO SCH ×2 (08:00→19:50)
--- NOTE | 2020-08-29 08:30 | NUR ---
Pt again refused her medication. Pt sitting on edge of bed, playing in with her breakfast. Observed eggs and skelton on floor. Pt stated "I'm done."
--- NOTE | 2020-08-29 10:09 | NUR ---
Pt laying at foot of bed with eyes open, responding to internal stiumli.
--- NOTE | 2020-08-29 12:09 | NUR ---
Pt sitting on bed crying. Exhibit Designer asked what was wrong pt stated "nothing," then requested some "cold water." Pt said "yes" to a snack, but didnt' eat it. Exhibit Designer explained that placement is being worked on. Pt stated "I don't need placement right now, I just need my family." Exhibit Designer asked if pt wanted to call her family pt said "no, just leave me alone."
--- NOTE | 2020-08-29 13:50 | NUR ---
Pt lying back on her bed looking tired, does not appear as animated. Pt ate only her brownie and yogurt for lunch. Pt stated "I just want my water."
--- NOTE | 2020-08-29 14:16 | NUR ---
Patient laying in bed staring at ceiling, carressing her own face, no signs of distress noted.
--- NOTE | 2020-08-29 15:40 | NUR ---
The patient up to the bathroom and required travel writer to check on her after a period of time. Pt sitting on toilet seat, was asked if she needed assistance pt stated "no." Inquired if pt needed intervention to help with a bowel movement. Pt again said "no."
--- NOTE | 2020-08-29 18:52 | NUR ---
The patient is sitting on her bed and ate very little of her dinner. She denies any kind of problems. She was asked the last time she had a bowel movement and she insisted that she does not have bowel movements any more. Her abd was soft and bowel sounds were normal. She makes no attempt to do personal hygiene. She has been awake for over 24 hours and she has been refusing all medications. She is actively responding to internal stimuli and is laughing, gesturing and whispering to herself. She stated that she slept all night last night and she was reminded that she had not slept at all. She appears disheveled.
[2020-08-29] MEDS ORDERED: OLANZapine 5mg rapidly disint. tablet PO ONE (19:25)
[2020-08-29] MEDS ORDERED: diphenhydrAMINE 50 mg/ml inj IM ONE (19:40)
[2020-08-29] MEDS ORDERED: haloperidol lactate 5mg/ml inj IM ONE (19:40)
[2020-08-29] MEDS: quetiapine 100mg tablet PO SCH (19:50)
[2020-08-29] MEDS: montelukast 10mg tablet PO SCH (19:50)
--- NOTE | 2020-08-29 19:51 | NUR ---
attempted to give the patient seroquel but she became anxious and stated "But I'm gambian! I'm " The patient then stated that she felt the pills were "too big" Discussed with DEONTE and sarkis jaimes ordered but again she refused stating she was gambian. She did state she preferred a shot. She was anxious but did allow staff to give her IM medications.
--- NOTE | 2020-08-29 20:27 | NUR ---
The patient is resting on her bed but awake. She had an evening snack
--- NOTE | 2020-08-29 22:01 | NUR ---
The patient up to use the bathroom but did not come out and when checked she was sitting on the floor and she was redirected back to her bed without issue
--- NOTE | 2020-08-29 22:47 | NUR ---
The patient is laying on her bed whispering and making gestures in the air
--- NOTE | 2020-08-29 23:49 | NUR ---
The patient remains awake and responding to internal stimuli. She is restless going to and from the bathroom. She got into a bed that was not assigned to her.
--- NOTE | 2020-08-30 01:52 | NUR ---
The patient appears to be sleeping
--- NOTE | 2020-08-30 04:21 | NUR ---
The patient sitting up briefly on her bed but is now laying back down and appears to be try going to sleep
--- NOTE | 2020-08-30 07:00 | NUR ---
Received pt asleep in bed without signs of distress.
[2020-08-30] MEDS: topiramate 25mg tablet PO SCH ×2 (07:50→20:43)
[2020-08-30] MEDS: propranolol 10mg tablet PO SCH ×2 (07:50→20:43)
--- NOTE | 2020-08-30 08:55 | NUR ---
Pt awoke for medications and am assessment. Pt took medications, and did answer questions, but was guarded and irritated; mumbling nonsensicle things to herself.
--- NOTE | 2020-08-30 08:56 | NUR ---
[facility] office contacted and they stated that the pt's packet was being looked at by a few facilities. They stated that Femi Byers requested an updated 5150 which was provided yesterday. Awaiting to hear from them today per [facility] office.
--- NOTE | 2020-08-30 11:00 | NUR ---
Pt had been in the bathroom for awhile and nurse found her sitting on the floor gesturing and talking to noone. Pt said, "Just five more minutes" Pt then was cooperative with returning to her bed and continued talking to herself and gesturing in the air at nothing. Pt currently lying in bed laughing quietly to herself.
--- NOTE | 2020-08-30 13:00 | NUR ---
Pt sitting in bed quietly talking to self.
--- NOTE | 2020-08-30 15:00 | NUR ---
Pt sitting on bed awake, laughing and talking to himself.
--- NOTE | 2020-08-30 17:00 | NUR ---
Pt making faces and laughing with 10 year old patient, then went into the bathroom and after 20 minutes, nurse went and again found her on the floor next to the toilet. Pt jumped up when nurse came in and she came out and went back to bed without issue.
--- NOTE | 2020-08-30 19:57 | NUR ---
During 1:1 bedside assessment, pt denies SI/SH/HI. She endorses AVH but will not elaborate when asked what/who she sees and hears. Pt is responding to internal stimuli AEB constanting laughing and talking to herself. When asked who/what shes laughing at, pt affect immediately changes and she is withdrawn/isolative. Pt does not interact with staff or peers but is polite when asked questions. Pt has poverty of speech and does not provide more than 1 word answers during assessment. Pt appears disheveled with unbrushed hair and does not want to change into clean scrubs. Performs ADLS without issue. Pt did not want to watch movie with peers
--- NOTE | 2020-08-30 20:53 | NUR ---
pt refusing to take her nighttime seroquel and singulair. will attempt to give meds again later. pt reports "i dont take yellow pills," "i'm lithuanian so i cant take them"
[2020-08-30] MEDS: quetiapine 100mg tablet PO SCH (21:00)
[2020-08-30] MEDS: montelukast 10mg tablet PO SCH (21:00)
--- NOTE | 2020-08-30 23:30 | NUR ---
PT SEEN RAISING MIDDLE FINGER TO THIS RN AND WHISPERING "YOURE A BITCH YOURE A BITCH YOURE A BITCH" REPEATEDLY TO SELF WHILE LOOKING AT THIS RN. ATTEMPTED TO REDIRECT PT AND INFORM HER THIS BEHAVIOR IS NOT APPROPRIATE. PT BEGAN YELLING THE SAME PHRASE LOUDER AND LOUDER. PT THEN REDIRECTED THAT BEHAVIOR LIKE THAT WILL NOT HELP GET HER PLACEMENT AND SHE NEEDS TO ACT APPROPRIATELY ON THE UNIT AND NOT YELL AT STAFF. PT THEN STATED "FINE ILL JUST TURN AROUND THEN." PT THEN TURNED AROUND IN BED AND CROSSED ARMS AND IS NOW SITTING QUIETLY IN BED WHISPERING AND LAUGHING TO HERSELF. CONTINUES TO REFUSE MEDICATIONS.
--- NOTE | 2020-08-31 00:49 | NUR ---
received call from [facility] regarding placement. requesting recent nurses notes, vital signs, medicaions given, and a new creatine kinase drawn by lab to ensure pt hydration status. received orders from [facility] to redraw lab
[2020-08-31 03:39] LABS: CREATINE KINASE 841 U/L (26-192)
--- NOTE | 2020-08-31 05:19 | NUR ---
[facility] aware of pt new creatine kinase level. no new orders. pt still medically cleared. information packet sent to [facility] per their request for possible placement.
--- NOTE | 2020-08-31 05:33 | NUR ---
correction for previous notes: [facility] is the facility looking into accepting pt, not [facility]
[2020-08-31] MEDS: propranolol 10mg tablet PO SCH ×3 (09:27→20:00)
[2020-08-31] MEDS: topiramate 25mg tablet PO SCH ×2 (09:38→20:00)
--- NOTE | 2020-08-31 10:04 | NUR ---
Pt refused to take her morning meds. She is lying in bed with head at foot of bed saying she needs to nap and can't take her pills.
--- NOTE | 2020-08-31 12:46 | NUR ---
PT AWAKE NO NEEDS AT THIS TIME
--- NOTE | 2020-08-31 19:00 | NUR ---
Received pt sitting up in bed, laughing to self.
[2020-08-31] MEDS: montelukast 10mg tablet PO SCH (21:00)
[2020-08-31] MEDS: quetiapine 100mg tablet PO SCH (21:00)
--- NOTE | 2020-08-31 21:00 | NUR ---
pt refused hs medications and began ranting paranoid/delusional thoughts regarding random things, 'I'm Lebanese . . . I'm going to puke" pt continued talking to self.
[2020-08-31] MEDS ORDERED: diphenhydrAMINE 50 mg/ml inj IM ONE (22:15)
[2020-08-31] MEDS ORDERED: haloperidol lactate 5mg/ml inj IM ONE (22:15)
[2020-08-31] MEDS ORDERED: haloperidol lactate 5mg/ml inj ONE ×2 (22:15)
--- NOTE | 2020-08-31 22:29 | NUR ---
pt behavior escalating and pt began yelling delusional/paranoid thoughts. pt again offered her po medications and pt refused and agitation escalation continued. MD notified and order for IM haldol and benadryl given to pt with security present. pt did not fight receiving the injections and tolerated well.
--- NOTE | 2020-09-01 00:22 | NUR ---
Pt fell asleep around 2245 and remains asleep without signs of distress.
--- NOTE | 2020-09-01 01:15 | NUR ---
Pt continues to sleep in no sign of distress.
--- NOTE | 2020-09-01 03:00 | NUR ---
Pt continues to sleep without signs of distress.
--- NOTE | 2020-09-01 05:00 | NUR ---
Pt awoke briefly then returned to sleep without any requests or complaints.
--- NOTE | 2020-09-01 07:00 | NUR ---
pt is awake and laying in her bed. ambulated to the bathroom independently
--- NOTE | 2020-09-01 08:00 | NUR ---
pt is sitting on the floor next to her bed.
[2020-09-01] MEDS: propranolol 10mg tablet PO SCH ×2 (08:26→20:15)
[2020-09-01] MEDS: topiramate 25mg tablet PO SCH ×2 (08:26→20:15)
--- NOTE | 2020-09-01 09:00 | NUR ---
pt is eating breakfast. pt needs covid vaccine to be able to go [facility]. pt has refused in the past but is not willing. [facility] is working on getting a single dose vaccine as the pharm here refuses to open a new viral for only one patient.
--- NOTE | 2020-09-01 10:05 | NUR ---
pt is laying in her bed
--- NOTE | 2020-09-01 11:00 | NUR ---
pt is laying in her in bed
--- NOTE | 2020-09-01 12:00 | NUR ---
pt is eating her lunch
--- NOTE | 2020-09-01 13:16 | NUR ---
pt is laying on the floor next to her bed. she says its more comfortable
--- NOTE | 2020-09-01 14:00 | NUR ---
pt is still sitting on the floor.
--- NOTE | 2020-09-01 15:00 | NUR ---
pt is back to laying in her bed. pt is talking to herself. repeating words
--- NOTE | 2020-09-01 16:39 | NUR ---
spoke with mother and gave her an update
--- NOTE | 2020-09-01 17:43 | NUR ---
pt is sitting in her bed
--- NOTE | 2020-09-01 19:00 | NUR ---
The patient appears psychotic and is constantly whispering and laughing to herself.
[2020-09-01] MEDS: quetiapine 100mg tablet PO SCH (20:13)
[2020-09-01] MEDS: montelukast 10mg tablet PO SCH (20:15)
--- NOTE | 2020-09-01 21:05 | NUR ---
The patient did take all of her HS medications. She is very childlike. She is whining and then she suddenly threw her water pitcher.
--- NOTE | 2020-09-01 22:30 | NUR ---
The patient is standing by her bed. She is accepting redirection
--- NOTE | 2020-09-02 00:03 | NUR ---
The patient appears to be sleeping
--- NOTE | 2020-09-02 01:44 | NUR ---
The patient appears to be sleeping
--- NOTE | 2020-09-02 04:33 | NUR ---
The patient appears to be sleeping
--- NOTE | 2020-09-02 07:00 | NUR ---
PT RESTING WITH EYES CLOSED, EFFORTLESS RESPIRATIONS OBSERVED.
[2020-09-02] MEDS: topiramate 25mg tablet PO SCH ×3 (09:11→20:00)
[2020-09-02] MEDS: propranolol 10mg tablet PO SCH ×2 (09:11→19:41)
--- NOTE | 2020-09-02 09:15 | NUR ---
PT SITTING ON EDGE OF BED EATING BREAKFAST TRAY.
--- NOTE | 2020-09-02 10:30 | NUR ---
PT REMAINS CALM AND COOPERATIVE AND WITHOUT NEEDS.
--- NOTE | 2020-09-02 11:30 | NUR ---
PT GIVEN CRAYONS AND COLORING BOOK FOR ACTIVITY, PT CURRENTLY LOOKING AT PAGES IN BOOK.
--- NOTE | 2020-09-02 13:25 | NUR ---
PT EATING LUNCH TRAY, PT CONTINUES TO DENIE NEEDS
--- NOTE | 2020-09-02 15:46 | NUR ---
PT CURRENTLY LOOKING AT PICTURES IN COLORING BOOK, PT REMAINS CALM AND COOPERATIVE
--- NOTE | 2020-09-02 16:50 | NUR ---
PTS MOTHER JC CALLED IN AND CHECKED ON PT. MOTHER UPDATED PT HAS REMAINED CALM, COOPERATIVE, EATING FOOD AND BEEN TAKING MEDICATIONS.
--- NOTE | 2020-09-02 19:08 | NUR ---
Nurse to nurse with Aditya at [facility] in [place].
--- NOTE | 2020-09-02 19:26 | NUR ---
The patient has been accepted at [facility]. Accepting MD by Dr. Gomez. She will be transported tomorrow by [facility] pending a negative covid repeated. She will be going to [address] [facility]. They are requiring a nurse to nurse when the patient is ready for transport. The number is [phone]
[2020-09-02] MEDS: montelukast 10mg tablet PO SCH ×2 (19:42→20:40)
[2020-09-02] MEDS ORDERED: diphenhydrAMINE 50 mg/ml inj IM ONE (20:35)
[2020-09-02] MEDS ORDERED: haloperidol lactate 5mg/ml inj IM ONE (20:35)
[2020-09-02] MEDS: quetiapine 100mg tablet PO SCH (20:40)
--- NOTE | 2020-09-02 21:00 | NUR ---
The patient is actively responding to internal stimuli. She is claiming to be then disrobing. She refused PO medications but was fairly cooperative with getting IM medications
--- NOTE | 2020-09-02 23:50 | NUR ---
The patient is awake and making odd noises and whispering to herself. She is laying on her bed currently.
--- NOTE | 2020-09-03 01:32 | NUR ---
The patient currently appears to be sleeping but appears restless.
--- NOTE | 2020-09-03 03:27 | NUR ---
THe patient appears to be sleeping
--- NOTE | 2020-09-03 04:59 | NUR ---
The patient appears to be sleeping
[2020-09-03 08:25] VITALS: BP 109/76
[2020-09-03] MEDS: topiramate 25mg tablet PO SCH (08:27)
[2020-09-03] MEDS: propranolol 10mg tablet PO SCH (08:27)
== END 2020-09-03 10:00 ==
LOC: ER 12:09
DX: F23 Brief psychotic disorder (principal); Z20.822 Contact with and (suspected) exposure to COVID-19; E86.0 Dehydration; R45.1 Restlessness and agitation; J45.909 Unspecified asthma, uncomplicated; Z79.899 Other long term (current) drug therapy
CPT/HCPCS: 36415; 80053; 80305; 80320; 81001; 81025; 82550; 84443; 85025; 87635; 96360; 96361; 96372; 99285; C9803; J1630; J2060; J7030; 87426; 96375